=== PATIENT | female | born 1935 ===

== ENCOUNTER 2021-04-07 16:41 | Inpatient (IN) | payer MEDICARE ==
--- NOTE | 2021-04-07 16:58 | Emergency Department Report ---
ED General Adult HPI - General Stated complaint: COVID/AMS Time Seen by Provider: 04/07/21 16:41 Source: EMS Mode of arrival: Stretcher - History of Present Illness Initial comments: Patient presents to the emergency department via EMS from [facility] with a chief complaint of altered mental status. Per the staff at the facility the patient is normally able to converse with them but today she had a change in her mental status. Per EMS upon their arrival the patient's O2 sats were 88% on 5 L O2. Patient arrived to the ED on a nonrebreather. Patient does have known Covid. Patient is in moderate respiratory distress upon arrival and is not able to add to the history. -: unknown Improves with: none Worsens with: none Associated Symptoms: other (Not able to provide) Treatments Prior to Arrival: other (O2) - Related Data Allergies Allergy/AdvReac Type Severity Reaction Status Date / Time No Known Allergies Allergy Unverified 04/07/21 17:07 ED Review of Systems ROS: Stated complaint: COVID/AMS Other details as noted in HPI Comment: Unobtainable due to pts medical conditions ED Physical Exam - General General appearance: obtunded - Head Head exam: Present: atraumatic, normocephalic - Eye Eye exam: Absent: scleral icterus, conjunctival injection - ENT ENT exam: Present: mucous membranes dry - Neck Neck exam: Present: normal inspection - Respiratory Respiratory exam: Present: respiratory distress, rales - Cardiovascular Cardiovascular Exam: Present: normal rhythm, tachycardia. Absent: systolic murmur, diastolic murmur, rubs, gallop - GI/Abdominal GI/Abdominal exam: Present: soft, normal bowel sounds. Absent: distended, tenderness - Extremities Exam Extremities exam: Present: normal inspection - Back Exam Back exam: Present: normal inspection - Neurological Exam Neurological exam: Present: altered, other (Not able to completely assess due to the patient's medical condition) - Psychiatric Psychiatric exam: Present: normal affect, normal mood - Skin Skin exam: Present: warm, dry, intact, normal color. Absent: rash ED Course Vital Signs 04/07/21 04/07/21 04/07/21 16:47 16:59 17:00 Pulse Rate 103 H 121 H 116 H Respiratory 25 H 32 H 29 H Rate Blood Pressure 109/68 109/68 105/63 O2 Sat by Pulse 96 91 94 Oximetry 04/07/21 04/07/21 17:58 18:00 Pulse Rate 102 H 105 H Respiratory 27 H 23 Rate Blood Pressure O2 Sat by Pulse 93 Oximetry ED Medical Decision Making - Lab Data Result diagrams: 04/07/21 16:51 04/07/21 16:51 Lab Results 04/07/21 04/07/21 04/07/21 Range/Units 16:51 16:51 16:51 WBC 12.5 H (4.5-11.0) K/mm3 RBC 5.44 H (3.65-5.03) M/mm3 Hgb 15.8 H (10.1-14.3) gm/dl Hct 48.8 H (30.3-42.9) % MCV 90 (79-97) fl MCH 29 (28-32) pg MCHC 32 (30-34) % RDW 16.3 H (13.2-15.2) % Plt Count 267 (140-440) K/mm3 Lymph % (Auto) 13.2 L (13.4-35.0) % [place] % (Auto) 4.7 (0.0-7.3) % Eos % (Auto) 0.1 (0.0-4.3) % Baso % (Auto) 0.3 (0.0-1.8) % Lymph # (Auto) 1.6 (1.2-5.4) K/mm3 [place] # (Auto) 0.6 (0.0-0.8) K/mm3 Eos # (Auto) 0.0 (0.0-0.4) K/mm3 Baso # (Auto) 0.0 (0.0-0.1) K/mm3 Seg Neutrophils % 81.7 H (40.0-70.0) % Seg Neutrophils # 10.2 H (1.8-7.7) K/mm3 PT 18.1 H (12.2-14.9) Sec. INR 1.45 H (0.87-1.13) APTT 30.4 (24.2-36.6) Sec. Sodium 163 H* (137-145) mmol/L Potassium 5.3 H (3.6-5.0) mmol/L Chloride 129.9 H (98-107) mmol/L Carbon Dioxide 19 L (22-30) mmol/L Anion Gap 19 mmol/L BUN 58 H (7-17) mg/dL Creatinine 1.4 H (0.6-1.2) mg/dL Estimated GFR 36 ml/min BUN/Creatinine Ratio 41 % Glucose 280 H (65-100) mg/dL Lactic Acid (0.7-2.0) mmol/L Calcium 8.9 (8.4-10.2) mg/dL Total Bilirubin 0.80 (0.1-1.2) mg/dL AST 29 (5-40) units/L ALT 17 (7-56) units/L Alkaline Phosphatase 75 (35-129) units/L Troponin T 0.102 H* (0.00-0.029) ng/mL NT-Pro-B Natriuret Pep 2713 H (0-900) pg/mL Total Protein 7.0 (6.3-8.2) g/dL Albumin 3.2 L (3.9-5) g/dL Albumin/Globulin Ratio 0.8 % Triglycerides 245 H (2-149) mg/dL Cholesterol 150 (50-199) mg/dL LDL Cholesterol Direct 70 (50-130) mg/dL HDL Cholesterol 35 L (40-59) mg/dL Cholesterol/HDL Ratio 4.28 % /16/ Range/Units 16:51 WBC (4.5-11.0) K/mm3 RBC (3.65-5.03) M/mm3 Hgb (10.1-14.3) gm/dl Hct (30.3-42.9) % MCV (79-97) fl MCH (28-32) pg MCHC (30-34) % RDW (13.2-15.2) % Plt Count (140-440) K/mm3 Lymph % (Auto) (13.4-35.0) % [place] % (Auto) (0.0-7.3) % Eos % (Auto) (0.0-4.3) % Baso % (Auto) (0.0-1.8) % Lymph # (Auto) (1.2-5.4) K/mm3 [place] # (Auto) (0.0-0.8) K/mm3 Eos # (Auto) (0.0-0.4) K/mm3 Baso # (Auto) (0.0-0.1) K/mm3 Seg Neutrophils % (40.0-70.0) % Seg Neutrophils # (1.8-7.7) K/mm3 PT (12.2-14.9) Sec. INR (0.87-1.13) APTT (24.2-36.6) Sec. Sodium (137-145) mmol/L Potassium (3.6-5.0) mmol/L Chloride (98-107) mmol/L Carbon Dioxide (22-30) mmol/L Anion Gap mmol/L BUN (7-17) mg/dL Creatinine (0.6-1.2) mg/dL Estimated GFR ml/min BUN/Creatinine Ratio % Glucose (65-100) mg/dL Lactic Acid 3.00 H* (0.7-2.0) mmol/L Calcium (8.4-10.2) mg/dL Total Bilirubin (0.1-1.2) mg/dL AST (5-40) units/L ALT (7-56) units/L Alkaline Phosphatase (35-129) units/L Troponin T (0.00-0.029) ng/mL NT-Pro-B Natriuret Pep (0-900) pg/mL Total Protein (6.3-8.2) g/dL Albumin (3.9-5) g/dL Albumin/Globulin Ratio % Triglycerides (2-149) mg/dL Cholesterol (50-199) mg/dL LDL Cholesterol Direct (50-130) mg/dL HDL Cholesterol (40-59) mg/dL Cholesterol/HDL Ratio % - Radiology Data Radiology results: report reviewed - Medical Decision Making Laboratory values reviewed and the patient will be admitted for further evaluation and work-up Critical Care Time: Yes Critical care time in (mins) excluding proc time.: 45 Critical care attestation.: If time is entered above; I have spent that time in minutes in the direct care of this critically ill patient, excluding procedure time. ED Disposition Clinical Impression: Hypoxia, Hyponatremia, Lactic acidosis, Elevated troponin, Elevated brain natriuretic peptide (BNP) level, Altered mental status, Leukocytosis Disposition: ADMITTED INPATIENT Is pt being admited?: Yes Does the pt Need Aspirin: No Condition: Fair
--- NOTE | 2021-04-07 17:15 | XRay Report ---
CHEST 1 VIEW 04/07/2021 4:45 PM INDICATION / CLINICAL INFORMATION: ams. COMPARISON: None available. FINDINGS: SUPPORT DEVICES: None. HEART / MEDIASTINUM: No significant abnormality. LUNGS / PLEURA: No significant pulmonary or pleural abnormality. No pneumothorax. ADDITIONAL FINDINGS: No significant additional findings. IMPRESSION: 1. No acute findings. Signer Name: Wesley Carlson MD Signed: 04/07/2021 5:10 PM Workstation Name: [email or web address]
--- NOTE | 2021-04-07 17:19 | Cat Scan Report ---
CT head/brain wo con INDICATION: Altered mental status. TECHNIQUE: All CT scans at this location are performed using CT dose reduction for ALARA by means of automated e xposure control. COMPARISON: None available. FINDINGS: There is no acute hemorrhage, hydrocephalus, or brain edema. There is cerebral white matter hypoatten uation suggesting severe chronic small vessel ischemic change with associated central volume loss. Th ere is moderate global brain atrophy. The included paranasal sinuses and mastoid air cells are clear. The orbits appear unremarkable. IMPRESSION: 1. No acute intracranial abnormality. Signer Name: Andi Araujo MD Signed: 04/07/2021 5:15 PM Workstation Name: [id number]
[2021-04-07 17:27] LABS: Basophils % (Auto) 0.3 % (0.0-1.8); Eosinophils % (Auto) 0.1 % (0.0-4.3); Hematocrit 48.8 % (30.3-42.9); Hemoglobin 15.8 gm/dl (10.1-14.3); Lymphocytes # (Auto) 1.6 K/mm3 (1.2-5.4); Lymphocytes % (Auto) 13.2 % (13.4-35.0); Mean Corpuscular HGB Conc 32 % (30-34); Mean Corpuscular Volume 90 fl (79-97); Monocytes # (Auto) 0.6 K/mm3 (0.0-0.8); Monocytes % (Auto) 4.7 % (0.0-7.3); Platelet Count 267 K/mm3 (140-440); Red Blood Count 5.44 M/mm3 (3.65-5.03); Red Cell Distribution Width 16.3 % (13.2-15.2)
[2021-04-07] MEDS ORDERED: CEFEPIME/NS 2 GM/100 ML 2 GM/100 ML BAG IV NR (17:30)
[2021-04-07 17:36] LABS: Albumin 3.2 g/dL (3.9-5); Calcium 8.9 mg/dL (8.4-10.2)
[2021-04-07 18:02] LABS: INR 1.45 (0.87-1.13); Partial Thromboplastin Time 30.4 Sec. (24.2-36.6)
[2021-04-07 18:13] LABS: Chol/HDL Ratio 4.28 %
--- NOTE | 2021-04-07 18:17 | History and Physical Report ---
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 Patient has diminished cognition at the time my evaluation and is unable to provide history. Patient history provided by EMS staff, ED staff, as well as [facility] facility staff. As per [facility] facility staff the patient has experienced decreased responsiveness over the past 2 days. Patient was found to have a pulse oximetry of 86% on room air. EMS was notified and upon arrival the patient was found to be in respiratory distress and was subsequently placed on submental oxygen and transported to [facility] for further care and evaluation of the aforementioned symptoms. The patient was seen and evaluated in the emergency department. All lab and imaging studies reviewed. Patient was found to have a pulse oximetry of 86% on room air which is consistent with acute hypoxemic respiratory failure, a heart rate in the 120s, and respiratory rate in the 30s. A chest x-ray revealed bilateral pneumonia. The patient was found to have sepsis, acidosis, acute kidney injury, as well as severe hyponatremia. The patient was admitted to medical floor and initiated on sepsis protocol, pneumonia protocol, as well as coronavirus protocol. No further history is obtainable. The patient has diminished cognition but has a positive gag reflex and is able to protect her airway without difficulty the time my evaluation. Advanced care planning conducted in ED. Past History Past Medical History: other (See HPI) Past Surgical History: No surgical history, Other (Reviewed) Social history: single. denies: smoking, alcohol abuse, prescription drug abuse Family history: no significant family history (Reviewed) Medications and Allergies Allergies Allergy/AdvReac Type Severity Reaction Status Date / Time No Known Allergies Allergy Unverified 04/07/21 17:07 Active Meds: Active Medications Cefepime HCl (Cefepime/Ns 2 Gm/100 Ml) 2 gm in 100 mls @ 200 mls/hr IV ONCE@1730 NR; Protocol Stop: 04/07/21 19:30 Review of Systems ROS unobtainable: due to mental status Exam - Constitutional Vitals: Temp Pulse Resp BP Pulse Ox 105 H 23 105/63 93 04/07/21 18:00 04/07/21 18:00 04/07/21 17:00 04/07/21 18:00 General appearance: Present: mild distress - EENT Eyes: Present: PERRL ENT: clear oral mucosa, hearing decreased - Neck Neck: Present: supple, normal ROM - Respiratory Respiratory effort: labored, accessory muscle use Respiratory: bilateral: diminished, rhonchi - Cardiovascular Rhythm: regular Heart Sounds: Present: S1 & S2 - Extremities Extremities: pulses symmetrical, No edema Peripheral Pulses: abnormal (Capillary refill greater than 3.5 seconds) - Abdominal General gastrointestinal: Present: soft, non-tender, non-distended, normal bowel sounds Female genitourinary: Present: normal - Integumentary Integumentary: Present: clear, dry, clammy, decreased turgor - Musculoskeletal Musculoskeletal: generalized weakness - Psychiatric Psychiatric: no intact judgment & insight, no memory intact - Neurologic Neurologic: CNII-XII intact, no focal deficits, moves all extremities, no gait normal HEART Score - HEART Score Troponin: Troponin T 0.102 ng/mL (0.00-0.029) H* 04/07/21 16:51 Results - Labs CBC & Chem 7: 04/07/21 16:51 04/07/21 16:51 Labs: Abnormal lab results 04/07/21 04/07/21 04/07/21 Range/Units 16:51 16:51 16:51 WBC 12.5 H (4.5-11.0) K/mm3 RBC 5.44 H (3.65-5.03) M/mm3 Hgb 15.8 H (10.1-14.3) gm/dl Hct 48.8 H (30.3-42.9) % RDW 16.3 H (13.2-15.2) % Lymph % (Auto) 13.2 L (13.4-35.0) % Seg Neutrophils % 81.7 H (40.0-70.0) % Seg Neutrophils # 10.2 H (1.8-7.7) K/mm3 PT 18.1 H (12.2-14.9) Sec. INR 1.45 H (0.87-1.13) Sodium 163 H* (137-145) mmol/L Potassium 5.3 H (3.6-5.0) mmol/L Chloride 129.9 H (98-107) mmol/L Carbon Dioxide 19 L (22-30) mmol/L BUN 58 H (7-17) mg/dL Creatinine 1.4 H (0.6-1.2) mg/dL Glucose 280 H (65-100) mg/dL Lactic Acid (0.7-2.0) mmol/L Troponin T 0.102 H* (0.00-0.029) ng/mL NT-Pro-B Natriuret Pep 2713 H (0-900) pg/mL Albumin 3.2 L (3.9-5) g/dL Triglycerides 245 H (2-149) mg/dL HDL Cholesterol 35 L (40-59) mg/dL 04/07/21 Range/Units 16:51 WBC (4.5-11.0) K/mm3 RBC (3.65-5.03) M/mm3 Hgb (10.1-14.3) gm/dl Hct (30.3-42.9) % RDW (13.2-15.2) % Lymph % (Auto) (13.4-35.0) % Seg Neutrophils % (40.0-70.0) % Seg Neutrophils # (1.8-7.7) K/mm3 PT (12.2-14.9) Sec. INR (0.87-1.13) Sodium (137-145) mmol/L Potassium (3.6-5.0) mmol/L Chloride (98-107) mmol/L Carbon Dioxide (22-30) mmol/L BUN (7-17) mg/dL Creatinine (0.6-1.2) mg/dL Glucose (65-100) mg/dL Lactic Acid 3.00 H* (0.7-2.0) mmol/L Troponin T (0.00-0.029) ng/mL NT-Pro-B Natriuret Pep (0-900) pg/mL Albumin (3.9-5) g/dL Triglycerides (2-149) mg/dL HDL Cholesterol (40-59) mg/dL Assessment and Plan - Patient Problems (1) Sepsis Current Visit: Yes Status: Acute Plan to address problem: Sepsis protocol: Chest x-ray, CBC, BMP, urinalysis, IV antibiotic therapy, IV fluid resuscitation therapy, serial lactic acid level, blood culture, monitor urine output every shift, monitor fluid balance, maintain mean arterial pressure greater than or equal to 65 (2) Coronavirus infection Current Visit: Yes Status: Acute Plan to address problem: Coronavirus protocol: Contact precaution, isolation precautions, IV antibiotic therapy, IV steroid therapy, supplemental oxygen, pulse oximetry, vitamin D therapy, vitamin C therapy, zinc therapy, (3) Acute hypoxemic respiratory failure Current Visit: Yes Status: Acute Plan to address problem: Chest x-ray, supplemental oxygen, pulse oximetry, nebulizer therapy, will consider high flow supplemental oxygen if patient is unable to maintain pulse oximetry on supplemental oxygen via nasal cannula. (4) Metabolic acidosis Current Visit: Yes Status: Acute Plan to address problem: BMP, IV fluid resuscitation therapy, repeat BMP in a.m. (5) SHANIA (acute kidney injury) Current Visit: Yes Status: Acute Plan to address problem: IV fluid resuscitation therapy, monitor urine output every shift, repeat BMP in a.m. to monitor serum creatinine as well as GFR. (6) Hypernatremia Current Visit: Yes Status: Acute Plan to address problem: IV fluid resuscitation therapy with lactated Ringer's, BMP, repeat BMP in a.m., (7) Volume depletion Current Visit: Yes Status: Acute Plan to address problem: IV fluid resuscitation therapy, monitor urine output every shift, monitor fluid balance. (8) DVT prophylaxis Current Visit: Yes Status: Acute Plan to address problem: SCD to bilateral lower extremities while in bed, prophylactic anticoagulation (9) Advance care planning Current Visit: Yes Status: Acute Plan to address problem: Disease education conducted, care plan discussed, diagnosis discussed, prognosis discussed, patient is full code. +30 minutes.
[2021-04-07] MEDS ORDERED: ONDANSETRON 4 MG/2 ML INJ IV PRN (18:19)
[2021-04-07] MEDS ORDERED: ACETAMINOPHEN 325 MG TAB PO PRN ×2 (18:19)
[2021-04-07] MEDS ORDERED: ALBUTEROL 2.5 MG/3 ML NEBU IH PRN (18:19)
[2021-04-07] MEDS ORDERED: HYDROmorphone 1 MG/1 ML INJ IV PRN (18:19)
[2021-04-07] MEDS ORDERED: oxyCODONE /ACETAMINOPHEN 5-325MG TAB PO PRN (18:19)
[2021-04-07] MEDS ORDERED: LACTATED RINGERS 2,500 ML IV ONE (18:25)
[2021-04-07 18:50] LABS: Amphetamine Screen,Urine Negative; Benzodiazepines Screen,Urine Negative; Cannabinoid Screen,Urine Negative; Cocaine Screen,Urine Negative; Methadone Screen,Urine Negative; Opiate Screen,Urine Negative
[2021-04-07] MEDS ORDERED: cefTRIAXone/NS 2 GM/100 ML 2 GM/100 ML BAG IV SCH (19:00)
[2021-04-07 19:02] LABS: Bacteria,Urine 2+ /HPF (Negative); Bilirubin,Urine NEG (Negative); Blood,Urine NEG (Negative); Color,Urine Amber (Yellow); Hyaline Casts,Urine 42 /LPF; Mucus,Urine 3+ /HPF; Renal Epithelial Cells,Urine 6 /LPF; Urobilinogen,Urine < 2.0 mg/dL (<2.0)
[2021-04-07] MEDS ORDERED: AZITHROMYCIN/NS 500 MG/250 ML 500 MG/250 ML BAG IV SCH (20:00)
[2021-04-07] MEDS: methylPREDNISolone Sod Succinate 40 MG/1 ML INJ IV SCH (20:07)
[2021-04-07] MEDS: HEPARIN 5,000 UNIT/1 ML VIAL SUB-Q SCH (22:02)
[2021-04-07] MEDS: ASCORBIC ACID 500 MG TAB PO SCH (22:02)
[2021-04-07] MEDS: AZITHROMYCIN/NS 500 MG/250 ML 500 MG/250 ML BAG IV SCH (22:03)
[2021-04-07] MEDS: ZINC SULFATE 220 MG CAP PO SCH (22:04)
[2021-04-08] MEDS: methylPREDNISolone Sod Succinate 40 MG/1 ML INJ IV SCH ×3 (05:49→22:16)
[2021-04-08] MEDS: HYDROmorphone 1 MG/1 ML INJ IV PRN ×2 (05:51→22:43)
[2021-04-08 07:24] LABS: Basophils % (Auto) 0.1 % (0.0-1.8); Hematocrit 42.4 % (30.3-42.9); Hemoglobin 13.8 gm/dl (10.1-14.3); Lymphocytes # (Auto) 1.2 K/mm3 (1.2-5.4); Lymphocytes % (Auto) 10.7 % (13.4-35.0); Mean Corpuscular HGB Conc 33 % (30-34); Mean Corpuscular Volume 90 fl (79-97); Monocytes # (Auto) 0.3 K/mm3 (0.0-0.8); Platelet Count 216 K/mm3 (140-440); Red Blood Count 4.72 M/mm3 (3.65-5.03); Red Cell Distribution Width 15.7 % (13.2-15.2)
[2021-04-08 07:42] LABS: Calcium 8.5 mg/dL (8.4-10.2)
[2021-04-08] MEDS ORDERED: DEXTROSE 5% IN WATER 1,000 ML IV SCH (08:00)
[2021-04-08] MEDS ORDERED: DEXTROSE 50% IN WATER (25GM) 50 ML SYRINGE IV PRN (08:03)
[2021-04-08] MEDS: cefTRIAXone/NS 2 GM/100 ML 2 GM/100 ML BAG IV SCH ×2 (08:53→10:00)
[2021-04-08] MEDS: AZITHROMYCIN/NS 500 MG/250 ML 500 MG/250 ML BAG IV SCH (10:27)
--- NOTE | 2021-04-08 11:34 | Event Note ---
Date: 04/08/21 I called next of kin, Lee Ann Moreau (granddaughter) to discuss Mrs. Moreau's current medical status. The decision was made to make the patient DNR/DNI. It was stressed that we will continue to provide medical therapy with intention to treat.
[2021-04-08] MEDS: HEPARIN 5,000 UNIT/1 ML VIAL SUB-Q SCH ×2 (12:27→22:15)
[2021-04-08] MEDS: INSULIN LISPRO 100 UNIT/ML SUB-Q SCH ×3 (12:27→23:55)
--- NOTE | 2021-04-08 13:38 | Electrocardiograph Report ---
[facility] Test Date: 2021-04-08 Test Time: 08:57:28 Pat Name: AJAY AIKEN Department: Room: [facility] Gender: F Retread Builder: BEATRIZ : 1935 Requested By: ELIUD GRANDE Order Number: [id number] Reading MD: Juan Daniel Garduno Measurements Intervals [place] Rate: 84 P: 79 [place]: 129 QRS: 35 QRSD: 133 T: 92 QT: 399 QTc: 472 Interpretive Statements Sinus rhythm Probable left atrial enlargement IVCD, consider RBBB Inferior infarct, old No previous ECG available for comparison Electronically Signed On 04-08-2021 13:37:45 EDT by Juan Daniel Garduno
[2021-04-08] MEDS: INSULIN GLARGINE 100 UNITS/ML SUB-Q SCH (14:10)
--- NOTE | 2021-04-08 15:59 | Consultation ---
History of Present Illness Consult date: 04/08/21 Requesting physician: JADE CORRIGAN Consult reason: elevated troponin History of present illness: Patient is an 85 y/o female with a PMHx of vascular dementia, COVID PNA, HTN, and DM who was brought to the ED for AMS. Patient is nonverbal at time of interview and history is taken from the chart. Per documentation patient is a resident at [facility] and has had worsening cognition for the last 2 days. Patient was found to be have an O2 of 86% and was then transported by EMS to [facility]. The patient was hospitalized and diagnosed with COVID-19 last week at [facility]. ED work up found patient to have SHANIA, be septic, have PNA, and have hypernatremia. Cardiology is consulted for elevated troponins. The patient is previously unknown to our practice. Past History Past Medical History: diabetes, DVT, hypertension, other (dementia) Past Surgical History: No surgical history, Other Social history: single. denies: smoking, alcohol abuse, prescription drug abuse Family history: no significant family history (Reviewed) Medications and Allergies Allergies Allergy/AdvReac Type Severity Reaction Status Date / Time No Known Allergies Allergy Unverified 04/07/21 17:07 Active Meds: Active Medications Acetaminophen (Acetaminophen 325 Mg Tab) 650 mg PO Q4H PRN PRN Reason: Pain MILD(1-3)/Fever >100.5/MILLER Albuterol (Albuterol 2.5 Mg/3 Ml Nebu) 2.5 mg IH Q4HRT PRN PRN Reason: Shortness Of Breath Ascorbic Acid (Ascorbic Acid 500 Mg Tab) 500 mg PO BID [facility] Last Admin: 04/07/21 22:02 Dose: 500 mg Documented by: Aspirin (Aspirin 81 Mg Tab Chew) 81 mg PO QDAY [facility]OOKS Cholecalciferol (Cholecalciferol (Vit D3) 1000 Unit (25 Mcg) Tab) 1,000 unit PO QDAY BROOKS Dextrose (Dextrose 50% In Water (25gm) 50 Ml Syringe) 50 ml IV Q30MIN PRN; Protocol PRN Reason: Hypoglycemia Heparin Sodium (Porcine) (Heparin 5,000 Unit/1 Ml Vial) 5,000 unit SUB-Q Q12HR [facility] Last Admin: 04/08/21 12:27 Dose: 5,000 unit Documented by: Hydromorphone HCl (Hydromorphone 1 Mg/1 Ml Inj) 0.25 mg IV Q4H PRN PRN Reason: Pain, Moderate (4-6) Last Admin: 04/08/21 05:51 Dose: 0.25 mg Documented by: Hydromorphone HCl (Hydromorphone 1 Mg/1 Ml Inj) 0.5 mg IV Q12H PRN PRN Reason: Pain , Severe (7-10) Ceftriaxone Sodium (Rocephin/Ns 2 Gm/100 Ml) 2 gm in 100 mls @ 200 mls/hr IV Q24HR BROOKS; Protocol Stop: 04/11/21 10:29 Last Admin: 04/08/21 08:53 Dose: 200 mls/hr Documented by: Azithromycin (Zithromax/Ns) 500 mg in 250 mls @ 250 mls/hr IV Q24HR BROOKS; Protocol Stop: 04/11/21 10:59 Last Admin: 04/08/21 10:27 Dose: 250 mls/hr Documented by: Dextrose (D5w) 1,000 mls @ 60 mls/hr IV DIRECT [facility] Last Admin: 04/08/21 08:49 Dose: 60 mls/hr Documented by: Insulin Glargine (Insulin Glargine 100 Units/Ml) 10 units SUB-Q QDAY [facility] Insulin Human Lispro (Insulin Lispro 100 Unit/Ml) 0 unit SUB-Q Q6HR [facility]; Protocol Last Admin: 04/08/21 12:27 Dose: 6 unit Documented by: Methylprednisolone Sodium Succinate (Methylprednisolone Sod Succinate 40 Mg/1 Ml Inj) 40 mg IV Q8H [facility] Last Admin: 04/08/21 12:18 Dose: 40 mg Documented by: Ondansetron HCl (Ondansetron 4 Mg/2 Ml Inj) 4 mg IV Q8H PRN PRN Reason: Nausea And Vomiting Oxycodone/Acetaminophen (Oxycodone /Acetaminophen 5-325mg Tab) 1 tab PO Q12H PRN PRN Reason: Pain, Moderate (4-6) Sodium Chloride (Sodium Chloride 0.9% 10 Ml Flush Syringe) 10 ml IV BID [facility] Last Admin: 04/07/21 22:03 Dose: 10 ml Documented by: Sodium Chloride (Sodium Chloride 0.9% 10 Ml Flush Syringe) 10 ml IV PRN PRN PRN Reason: LINE FLUSH Zinc Sulfate (Zinc Sulfate 220 Mg Cap) 220 mg PO BID [facility] Last Admin: 04/07/21 22:04 Dose: 220 mg Documented by: Review of Systems ROS unobtainable: due to mental status Physical Examination Vital Signs Pulse Resp BP Pulse Ox 103 H 25 H 109/68 96 04/07/21 16:47 04/07/21 16:47 04/07/21 16:47 04/07/21 16:47 General appearance: no acute distress HEENT: Positive: PERRL, Mucus Membranes Dry Neck: Positive: trachea midline Cardiac: Positive: Reg Rate and Rhythm Lungs: Positive: Decreased Breath Sounds Neuro: Positive: Other (unable to assess) Abdomen: Positive: Active Bowel Sounds Skin: Negative: Rash, Suspicious Lesions, Ulceration Extremities: Present: upper extr. pulses, lower extr. pulses, edema (trace) Results 04/08/21 06:49 04/08/21 12:33 Cardiac Enzymes 04/07/21 Range/Units 16:51 AST 29 (5-40) units/L Coagulation 04/07/21 Range/Units 16:51 PT 18.1 H (12.2-14.9) Sec. INR 1.45 H (0.87-1.13) APTT 30.4 (24.2-36.6) Sec. Lipids 04/07/21 Range/Units 16:51 Triglycerides 245 H (2-149) mg/dL Cholesterol 150 (50-199) mg/dL HDL Cholesterol 35 L (40-59) mg/dL Cholesterol/HDL Ratio 4.28 % CBC 04/07/21 04/08/21 Range/Units 16:51 06:49 WBC 12.5 H 11.5 H (4.5-11.0) K/mm3 RBC 5.44 H 4.72 (3.65-5.03) M/mm3 Hgb 15.8 H 13.8 (10.1-14.3) gm/dl Hct 48.8 H 42.4 D (30.3-42.9) % Plt Count 267 216 (140-440) K/mm3 Lymph # (Auto) 1.6 1.2 (1.2-5.4) K/mm3 [place] # (Auto) 0.6 0.3 (0.0-0.8) K/mm3 Eos # (Auto) 0.0 0.0 (0.0-0.4) K/mm3 Baso # (Auto) 0.0 0.0 (0.0-0.1) K/mm3 Comprehensive Metabolic Panel 04/07/21 04/08/21 04/08/21 Range/Units 16:51 06:49 12:33 Sodium 163 H* 167 H* 169 H* (137-145) mmol/L Potassium 5.3 H 4.5 (3.6-5.0) mmol/L Chloride 129.9 H 131.3 H (98-107) mmol/L Carbon Dioxide 19 L 27 D (22-30) mmol/L BUN 58 H 76 H (7-17) mg/dL Creatinine 1.4 H 1.7 H (0.6-1.2) mg/dL Glucose 280 H 367 H (65-100) mg/dL Calcium 8.9 8.5 (8.4-10.2) mg/dL AST 29 (5-40) units/L ALT 17 (7-56) units/L Alkaline Phosphatase 75 (35-129) units/L Total Protein 7.0 (6.3-8.2) g/dL Albumin 3.2 L (3.9-5) g/dL - Imaging and Cardiology Echo: report reviewed EKG: report reviewed, image reviewed EKG interpretations - Telemetry EKG Rhythm: Sinus Rhythm - EKG Sinus rhythms and dysrhythmias: sinus rhythm AV and intraventricular conduction: right bundle branch block Assessment and Plan 85 y/o female with PMHx of dementia, COVID-19 PNA, HTN, 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 Troponins noted to be elevated and steady at 0.1. * Echo 03/27/2021- Normal LV dimensions. LV wall mass/thickness are grossly normal LV systolic function is normal with an estimated LVEF of >70%. No regional wall motion abnormalities. LV diastolic function is indeterminate, Normal RV dimensions. RV systolic function is normal. LA/RA not fully visualized. Aortic valve with mildly-thickened and calcified leaflets. No a ortic stenosis. No aortic regurgitation. Mitral valve appears normal. No mitral stenosis. No mitral regurgitation. Normal tricuspid valve morphology. No tricuspid regurgitation. Pulmonic valve not well seen. No pulmonic regurgitation. Hypernatremia * Management per primary SHANIA * Management per primary team Elevated troponins likely a result of supply demand mismatch from sepsis secondary to COVID PNA. Noted that troponins have down trended from patients admission to [facility] last week. Patient seen in conjunction with Dr. Minor who agrees with this plan of care. Will continue to follow - Patient Problems (1) NSTEMI (non-ST elevated myocardial infarction) Current Visit: Yes Status: Acute (2) SHANIA (acute kidney injury) Current Visit: Yes Status: Acute (3) Acute hypoxemic respiratory failure Current Visit: Yes Status: Acute (4) Coronavirus infection Current Visit: Yes Status: Acute (5) Elevated brain natriuretic peptide (BNP) level Current Visit: Yes Status: Acute (6) Hypernatremia Current Visit: Yes Status: Acute (7) Leukocytosis Current Visit: Yes Status: Acute (8) Sepsis Current Visit: Yes Status: Acute
--- NOTE | 2021-04-08 16:10 | Progress Note ---
Assessment and Plan Assessment and plan: #Acute hypoxic respiratory failure #Severe COVID-19 infection -Recently hospitalized at [facility] due to COVID-19 infection -Transferred to [facility] -Currently on nonrebreather -Discussion with next of kin, wants patient to be discharged with hospice -We will continue current care until patient accepted by hospice agency #Hypernatremia -Sodium 169 -Likely due to volume depletion, patient has not eaten or drink adequately since being in the [facility] -3 water deficit calculated 3.8 L -Every 6 hours sodium checks -Continue D5W at 60 cc an hour #Elevated troponin -Troponin 0.106 -Cardiology consulted #SHANIA -Creatinine 1.4 increased to 1.7 -Likely secondary to volume depletion, will continue to monitor #Type 2 diabetes -A1c 9.0% -Diagnosis confirmed by next of kin, takes Januvia at home -Will give 10 units Lantus nightly plus SSI -N.p.o. for now Disposition Plan: Home with hospice Total Time Spent with Patient (Minutes): 40 minutes History Interval history: Patient lying in bed with nonrebreather. Does not respond to any commands. Able to protect airway. Hospitalist Physical - Physical exam Narrative exam: GENERAL: Thin elderly woman, lying in bed.. HEENT: Nonrebreather at 10 L. CHEST/LUNGS: Coarse breath sounds bilaterally. HEART/CARDIOVASCULAR: RRR. No murmur, rubs or gallops appreciated. ABDOMEN: +BS. NT/ND. SKIN: Poor skin turgor NEURO: Unable to assess EXTREMITIES: No cyanosis, cubbing or edema. PSYCH: Unable to assess - Constitutional Vitals: Temp Pulse Resp BP Pulse Ox 98.3 F 90 22 111/52 96 04/08/21 10:55 04/08/21 10:55 04/08/21 10:55 04/08/21 10:55 04/08/21 11:07 General appearance: Present: no acute distress HEART Score - HEART Score Troponin: Troponin T 0.106 ng/mL (0.00-0.029) H* 04/08/21 09:18 Results - Labs CBC & Chem 7: 04/08/21 06:49 04/08/21 12:33 Labs: Laboratory Last Values WBC 11.5 K/mm3 (4.5-11.0) H 04/08/21 06:49 RBC 4.72 M/mm3 (3.65-5.03) 04/08/21 06:49 Hgb 13.8 gm/dl (10.1-14.3) 04/08/21 06:49 Hct 42.4 % (30.3-42.9) D 04/08/21 06:49 MCV 90 fl (79-97) 04/08/21 06:49 MCH 29 pg (28-32) 04/08/21 06:49 MCHC 33 % (30-34) 04/08/21 06:49 RDW 15.7 % (13.2-15.2) H 04/08/21 06:49 Plt Count 216 K/mm3 (140-440) 04/08/21 06:49 Lymph % (Auto) 10.7 % (13.4-35.0) L 04/08/21 06:49 [place] % (Auto) 3.0 % (0.0-7.3) 04/08/21 06:49 Eos % (Auto) 0.0 % (0.0-4.3) 04/08/21 06:49 Baso % (Auto) 0.1 % (0.0-1.8) 04/08/21 06:49 Lymph # (Auto) 1.2 K/mm3 (1.2-5.4) 04/08/21 06:49 [place] # (Auto) 0.3 K/mm3 (0.0-0.8) 04/08/21 06:49 Eos # (Auto) 0.0 K/mm3 (0.0-0.4) 04/08/21 06:49 Baso # (Auto) 0.0 K/mm3 (0.0-0.1) 04/08/21 06:49 Seg Neutrophils % 86.2 % (40.0-70.0) H 04/08/21 06:49 Seg Neutrophils # 9.9 K/mm3 (1.8-7.7) H 04/08/21 06:49 PT 18.1 Sec. (12.2-14.9) H 04/07/21 16:51 INR 1.45 (0.87-1.13) H 04/07/21 16:51 APTT 30.4 Sec. (24.2-36.6) 04/07/21 16:51 Sodium 169 mmol/L (137-145) H* 04/08/21 12:33 Potassium 4.5 mmol/L (3.6-5.0) 04/08/21 06:49 Chloride 131.3 mmol/L (98-107) H 04/08/21 06:49 Carbon Dioxide 27 mmol/L (22-30) D 04/08/21 06:49 Anion Gap 13 mmol/L 04/08/21 06:49 BUN 76 mg/dL (7-17) H 04/08/21 06:49 Creatinine 1.7 mg/dL (0.6-1.2) H 04/08/21 06:49 Estimated GFR 29 ml/min 04/08/21 06:49 BUN/Creatinine Ratio 45 % 04/08/21 06:49 Glucose 367 mg/dL (65-100) H 04/08/21 06:49 POC Glucose 337 mg/dL (70-105) H 04/08/21 12:18 Hemoglobin A1c 9.0 % (4-6) H 04/08/21 09:18 Lactic Acid 1.70 mmol/L (0.7-2.0) 04/08/21 09:18 Calcium 8.5 mg/dL (8.4-10.2) 04/08/21 06:49 Total Bilirubin 0.80 mg/dL (0.1-1.2) 04/07/21 16:51 AST 29 units/L (5-40) 04/07/21 16:51 ALT 17 units/L (7-56) 04/07/21 16:51 Alkaline Phosphatase 75 units/L (35-129) 04/07/21 16:51 Troponin T 0.106 ng/mL (0.00-0.029) H* 04/08/21 09:18 NT-Pro-B Natriuret Pep 2713 pg/mL (0-900) H 04/07/21 16:51 Total Protein 7.0 g/dL (6.3-8.2) 04/07/21 16:51 Albumin 3.2 g/dL (3.9-5) L 04/07/21 16:51 Albumin/Globulin Ratio 0.8 % 04/07/21 16:51 Triglycerides 245 mg/dL (2-149) H 04/07/21 16:51 Cholesterol 150 mg/dL (50-199) 04/07/21 16:51 LDL Cholesterol Direct 70 mg/dL (50-130) 04/07/21 16:51 HDL Cholesterol 35 mg/dL (40-59) L 04/07/21 16:51 Cholesterol/HDL Ratio 4.28 % 04/07/21 16:51 Urine Color Leyla (Yellow) 04/07/21 18:20 Urine Turbidity Cloudy (Clear) 04/07/21 18:20 Urine pH 5.0 (5.0-7.0) 04/07/21 18:20 Ur Specific [place] 1.026 (1.003-1.030) 04/07/21 18:20 Urine Protein 100 mg/dl mg/dL (Negative) 04/07/21 18:20 Urine Glucose (UA) 50 mg/dL (Negative) 04/07/21 18:20 Urine Ketones Tr mg/dL (Negative) 04/07/21 18:20 Urine Blood Neg (Negative) 04/07/21 18:20 Urine Nitrite Neg (Negative) 04/07/21 18:20 Urine Bilirubin Neg (Negative) 04/07/21 18:20 Urine Urobilinogen < 2.0 mg/dL (<2.0) 04/07/21 18:20 Ur Leukocyte Esterase Tr (Negative) 04/07/21 18:20 Urine WBC (Auto) 12.0 /HPF (0.0-6.0) H 04/07/21 18:20 Urine RBC (Auto) 5.0 /HPF (0.0-6.0) 04/07/21 18:20 U Epithel Cells (Auto) 17.0 /HPF (0-13.0) H 04/07/21 18:20 Urine Bacteria (Auto) 2+ /HPF (Negative) 04/07/21 18:20 Ur Renal Epithelial Cell 6 /LPF 04/07/21 18:20 Hyaline Casts 42 /LPF 04/07/21 18:20 Urine Mucus 3+ /HPF 04/07/21 18:20 Urine Opiates Screen Negative 04/07/21 18:20 Urine Methadone Screen Negative 04/07/21 18:20 Ur Barbiturates Screen Negative 04/07/21 18:20 Ur Phencyclidine Scrn Negative 04/07/21 18:20 Ur Amphetamines Screen Negative 04/07/21 18:20 U Benzodiazepines Scrn Negative 04/07/21 18:20 Urine Cocaine Screen Negative 04/07/21 18:20 U Marijuana (THC) Screen Negative 04/07/21 18:20 Drugs of Abuse Note Disclamer 04/07/21 18:20 Blood Type A POSITIVE 04/07/21 18:31 Antibody Screen Negative 04/07/21 18:31 Microbiology: Microbiology 04/07/21 18:20 Urine,Clean Catch Urine Culture - Preliminary NO GROWTH AFTER 24 HOURS 04/07/21 16:51 Peripheral/Venous Blood Culture - Preliminary Culture in Progress 04/07/21 16:59 Peripheral/Venous Blood Culture - Preliminary Culture in Progress Hubbard/IV: Voiding Method Incontinent Active Medications - Current Medications Current Medications: Generic Name Dose Route Start Last Admin Trade Name Freq PRN Reason Stop Dose Admin Acetaminophen 650 mg 04/07/21 18:19 Acetaminophen 325 Mg Tab PO Q4H PRN Pain MILD(1-3)/Fever >100.5/MILLER Albuterol 2.5 mg 04/07/21 18:19 Albuterol 2.5 Mg/3 Ml Nebu IH Q4HRT PRN Shortness Of Breath Ascorbic Acid 500 mg 04/07/21 22:00 04/07/21 22:02 Ascorbic Acid 500 Mg Tab PO 500 mg BID BROOKS Administration Aspirin 81 mg 04/09/21 10:00 Aspirin 81 Mg Tab Chew PO QDAY BROOKS Cholecalciferol 1,000 unit 04/08/21 10:00 Cholecalciferol (Vit D3) 1000 Unit (25 Mcg) Tab PO QDAY BROOKS Dextrose 50 ml 04/08/21 08:03 Dextrose 50% In Water (25gm) 50 Ml Syringe IV Q30MIN PRN Hypoglycemia Protocol Heparin Sodium (Porcine) 5,000 unit 04/07/21 22:00 04/08/21 12:27 Heparin 5,000 Unit/1 Ml Vial SUB-Q 5,000 unit Q12HR BROOKS Administration Hydromorphone HCl 0.25 mg 04/07/21 18:19 04/08/21 05:51 Hydromorphone 1 Mg/1 Ml Inj IV 0.25 mg Q4H PRN Administration Pain, Moderate (4-6) Hydromorphone HCl 0.5 mg 04/07/21 18:19 Hydromorphone 1 Mg/1 Ml Inj IV Q12H PRN Pain , Severe (7-10) Ceftriaxone Sodium 2 gm in 100 mls @ 200 mls/hr 04/08/21 10:00 04/08/21 08:53 Rocephin/Ns 2 Gm/100 Ml IV 04/11/21 10:29 200 mls/hr Q24HR BROOKS Administration Protocol Azithromycin 500 mg in 250 mls @ 250 mls/hr 04/07/21 21:30 04/08/21 10:27 Zithromax/Ns IV 04/11/21 10:59 250 mls/hr Q24HR BROOKS Administration Protocol Dextrose 1,000 mls @ 60 mls/hr 04/08/21 08:00 04/08/21 08:49 D5w IV 60 mls/hr DIRECT BROOKS Administration Insulin Glargine 10 units 04/08/21 14:00 Insulin Glargine 100 Units/Ml SUB-Q QDAY BROOKS Insulin Human Lispro 0 unit 04/08/21 12:00 04/08/21 12:27 Insulin Lispro 100 Unit/Ml SUB-Q 6 unit Q6HR BROOKS Administration Protocol Methylprednisolone Sodium Succinate 40 mg 04/07/21 20:00 04/08/21 12:18 Methylprednisolone Sod Succinate 40 Mg/1 Ml Inj IV 40 mg Q8H BROOKS Administration Ondansetron HCl 4 mg 04/07/21 18:19 Ondansetron 4 Mg/2 Ml Inj IV Q8H PRN Nausea And Vomiting Oxycodone/Acetaminophen 1 tab 04/07/21 18:19 Oxycodone /Acetaminophen 5-325mg Tab PO Q12H PRN Pain, Moderate (4-6) Sodium Chloride 10 ml 04/07/21 22:00 04/07/21 22:03 Sodium Chloride 0.9% 10 Ml Flush Syringe IV 10 ml BID BROOKS Administration Sodium Chloride 10 ml 04/07/21 18:19 Sodium Chloride 0.9% 10 Ml Flush Syringe IV PRN PRN LINE FLUSH Zinc Sulfate 220 mg 04/07/21 22:00 04/07/21 22:04 Zinc Sulfate 220 Mg Cap PO 220 mg BID BROOKS Administration
--- NOTE | 2021-04-08 16:32 | Consultation ---
History of Present Illness - Reason for Consult Consult date: 04/08/21 COVID - History of Present Illness 85-year-old female with history of dementia, COVID-19 infection, admitted on 04/07/2021 due to status from the [facility]. Patient was found with an O2 sat of 86%. On arrival, temperature 99.7, HR 121, BP 109/68, O2 sat down to 86%. Blood culture 04/07/2021 no growth today. Urine culture no growth. Chest x-ray no consolidations. Initial WBC 12.5. Hemoglobin 13.8. Platelets 267. Sodium 163. Creatinine 1.4. Lactate 3. Urine with 12 WBCs trace leukocyte esterase. Review of Systems: reviewed ED and H&P notes. Review of system deferred to minimize COVID-19 transmission. Past History Past Medical History: diabetes, DVT, hypertension, other (dementia) Past Surgical History: No surgical history, Other Social history: single. denies: smoking, alcohol abuse, prescription drug abuse Family history: no significant family history (Reviewed) Medications and Allergies Allergies Allergy/AdvReac Type Severity Reaction Status Date / Time No Known Allergies Allergy Unverified 04/07/21 17:07 Active Meds: Active Medications Acetaminophen (Acetaminophen 325 Mg Tab) 650 mg PO Q4H PRN PRN Reason: Pain MILD(1-3)/Fever >100.5/MILLER Albuterol (Albuterol 2.5 Mg/3 Ml Nebu) 2.5 mg IH Q4HRT PRN PRN Reason: Shortness Of Breath Ascorbic Acid (Ascorbic Acid 500 Mg Tab) 500 mg PO BID [facility] Last Admin: 04/07/21 22:02 Dose: 500 mg Documented by: Aspirin (Aspirin 81 Mg Tab Chew) 81 mg PO QDAY [facility] Cholecalciferol (Cholecalciferol (Vit D3) 1000 Unit (25 Mcg) Tab) 1,000 unit PO QDAY [facility] Dextrose (Dextrose 50% In Water (25gm) 50 Ml Syringe) 50 ml IV Q30MIN PRN; Protocol PRN Reason: Hypoglycemia Heparin Sodium (Porcine) (Heparin 5,000 Unit/1 Ml Vial) 5,000 unit SUB-Q Q12HR [facility] Last Admin: 04/08/21 12:27 Dose: 5,000 unit Documented by: Hydromorphone HCl (Hydromorphone 1 Mg/1 Ml Inj) 0.25 mg IV Q4H PRN PRN Reason: Pain, Moderate (4-6) Last Admin: 04/08/21 05:51 Dose: 0.25 mg Documented by: Hydromorphone HCl (Hydromorphone 1 Mg/1 Ml Inj) 0.5 mg IV Q12H PRN PRN Reason: Pain , Severe (7-10) Ceftriaxone Sodium (Rocephin/Ns 2 Gm/100 Ml) 2 gm in 100 mls @ 200 mls/hr IV Q24HR [facility]; Protocol Stop: 04/11/21 10:29 Last Admin: 04/08/21 08:53 Dose: 200 mls/hr Documented by: Azithromycin (Zithromax/Ns) 500 mg in 250 mls @ 250 mls/hr IV Q24HR BROOKS; Protocol Stop: 04/11/21 10:59 Last Admin: 04/08/21 10:27 Dose: 250 mls/hr Documented by: Dextrose (D5w) 1,000 mls @ 60 mls/hr IV DIRECT BROOKS Last Admin: 04/08/21 08:49 Dose: 60 mls/hr Documented by: Insulin Glargine (Insulin Glargine 100 Units/Ml) 10 units SUB-Q QDAY [facility] Insulin Human Lispro (Insulin Lispro 100 Unit/Ml) 0 unit SUB-Q Q6HR [facility]; Protocol Last Admin: 04/08/21 12:27 Dose: 6 unit Documented by: Methylprednisolone Sodium Succinate (Methylprednisolone Sod Succinate 40 Mg/1 Ml Inj) 40 mg IV Q8H [facility] Last Admin: 04/08/21 12:18 Dose: 40 mg Documented by: Ondansetron HCl (Ondansetron 4 Mg/2 Ml Inj) 4 mg IV Q8H PRN PRN Reason: Nausea And Vomiting Oxycodone/Acetaminophen (Oxycodone /Acetaminophen 5-325mg Tab) 1 tab PO Q12H PRN PRN Reason: Pain, Moderate (4-6) Sodium Chloride (Sodium Chloride 0.9% 10 Ml Flush Syringe) 10 ml IV BID [facility] Last Admin: 04/07/21 22:03 Dose: 10 ml Documented by: Sodium Chloride (Sodium Chloride 0.9% 10 Ml Flush Syringe) 10 ml IV PRN PRN PRN Reason: LINE FLUSH Zinc Sulfate (Zinc Sulfate 220 Mg Cap) 220 mg PO BID [facility] Last Admin: 04/07/21 22:04 Dose: 220 mg Documented by: Physical Examination - Physical Exam Narrative exam: Physical exam deferred to minimize COVID-19 transmission during pandemic. ER and internal medicine physical examination notes reviewed. - Constitutional Vitals: Vital Signs Temp Pulse Resp BP Pulse Ox 98.3 F 90 22 111/52 96 04/08/21 10:55 04/08/21 10:55 04/08/21 10:55 04/08/21 10:55 04/08/21 11:07 Temperature -Last 24 Hours Temperature 98.3 F Temperature 97.3 F Temperature 99.7 F Results - Labs CBC & Chem 7: 04/08/21 06:49 04/08/21 12:33 Labs: Abnormal lab results 04/07/21 04/07/21 04/07/21 Range/Units 16:51 16:51 16:51 WBC 12.5 H (4.5-11.0) K/mm3 RBC 5.44 H (3.65-5.03) M/mm3 Hgb 15.8 H (10.1-14.3) gm/dl Hct 48.8 H (30.3-42.9) % RDW 16.3 H (13.2-15.2) % Lymph % (Auto) 13.2 L (13.4-35.0) % Seg Neutrophils % 81.7 H (40.0-70.0) % Seg Neutrophils # 10.2 H (1.8-7.7) K/mm3 PT 18.1 H (12.2-14.9) Sec. INR 1.45 H (0.87-1.13) Sodium 163 H* (137-145) mmol/L Potassium 5.3 H (3.6-5.0) mmol/L Chloride 129.9 H (98-107) mmol/L Carbon Dioxide 19 L (22-30) mmol/L BUN 58 H (7-17) mg/dL Creatinine 1.4 H (0.6-1.2) mg/dL Glucose 280 H (65-100) mg/dL POC Glucose (70-105) mg/dL Hemoglobin A1c (4-6) % Lactic Acid (0.7-2.0) mmol/L Troponin T 0.102 H* (0.00-0.029) ng/mL NT-Pro-B Natriuret Pep 2713 H (0-900) pg/mL Albumin 3.2 L (3.9-5) g/dL Triglycerides 245 H (2-149) mg/dL HDL Cholesterol 35 L (40-59) mg/dL Urine WBC (Auto) (0.0-6.0) /HPF U Epithel Cells (Auto) (0-13.0) /HPF 04/07/21 04/07/21 04/07/21 Range/Units 16:51 18:20 18:31 WBC (4.5-11.0) K/mm3 RBC (3.65-5.03) M/mm3 Hgb (10.1-14.3) gm/dl Hct (30.3-42.9) % RDW (13.2-15.2) % Lymph % (Auto) (13.4-35.0) % Seg Neutrophils % (40.0-70.0) % Seg Neutrophils # (1.8-7.7) K/mm3 PT (12.2-14.9) Sec. INR (0.87-1.13) Sodium (137-145) mmol/L Potassium (3.6-5.0) mmol/L Chloride (98-107) mmol/L Carbon Dioxide (22-30) mmol/L BUN (7-17) mg/dL Creatinine (0.6-1.2) mg/dL Glucose (65-100) mg/dL POC Glucose (70-105) mg/dL Hemoglobin A1c (4-6) % Lactic Acid 3.00 H* 3.20 H* (0.7-2.0) mmol/L Troponin T (0.00-0.029) ng/mL NT-Pro-B Natriuret Pep (0-900) pg/mL Albumin (3.9-5) g/dL Triglycerides (2-149) mg/dL HDL Cholesterol (40-59) mg/dL Urine WBC (Auto) 12.0 H (0.0-6.0) /HPF U Epithel Cells (Auto) 17.0 H (0-13.0) /HPF 04/08/21 04/08/21 04/08/21 Range/Units 06:49 06:49 09:18 WBC 11.5 H (4.5-11.0) K/mm3 RBC (3.65-5.03) M/mm3 Hgb (10.1-14.3) gm/dl Hct (30.3-42.9) % RDW 15.7 H (13.2-15.2) % Lymph % (Auto) 10.7 L (13.4-35.0) % Seg Neutrophils % 86.2 H (40.0-70.0) % Seg Neutrophils # 9.9 H (1.8-7.7) K/mm3 PT (12.2-14.9) Sec. INR (0.87-1.13) Sodium 167 H* (137-145) mmol/L Potassium (3.6-5.0) mmol/L Chloride 131.3 H (98-107) mmol/L Carbon Dioxide (22-30) mmol/L BUN 76 H (7-17) mg/dL Creatinine 1.7 H (0.6-1.2) mg/dL Glucose 367 H (65-100) mg/dL POC Glucose (70-105) mg/dL Hemoglobin A1c 9.0 H (4-6) % Lactic Acid (0.7-2.0) mmol/L Troponin T (0.00-0.029) ng/mL NT-Pro-B Natriuret Pep (0-900) pg/mL Albumin (3.9-5) g/dL Triglycerides (2-149) mg/dL HDL Cholesterol (40-59) mg/dL Urine WBC (Auto) (0.0-6.0) /HPF U Epithel Cells (Auto) (0-13.0) /HPF 04/08/21 04/08/21 04/08/21 Range/Units 09:18 12:18 12:33 WBC (4.5-11.0) K/mm3 RBC (3.65-5.03) M/mm3 Hgb (10.1-14.3) gm/dl Hct (30.3-42.9) % RDW (13.2-15.2) % Lymph % (Auto) (13.4-35.0) % Seg Neutrophils % (40.0-70.0) % Seg Neutrophils # (1.8-7.7) K/mm3 PT (12.2-14.9) Sec. INR (0.87-1.13) Sodium 169 H* (137-145) mmol/L Potassium (3.6-5.0) mmol/L Chloride (98-107) mmol/L Carbon Dioxide (22-30) mmol/L BUN (7-17) mg/dL Creatinine (0.6-1.2) mg/dL Glucose (65-100) mg/dL POC Glucose 337 H (70-105) mg/dL Hemoglobin A1c (4-6) % Lactic Acid (0.7-2.0) mmol/L Troponin T 0.106 H* (0.00-0.029) ng/mL NT-Pro-B Natriuret Pep (0-900) pg/mL Albumin (3.9-5) g/dL Triglycerides (2-149) mg/dL HDL Cholesterol (40-59) mg/dL Urine WBC (Auto) (0.0-6.0) /HPF U Epithel Cells (Auto) (0-13.0) /HPF Assessment and Plan Cultures: Blood culture no growth today SARS CoV2 PCR Assessment: 85-year-old female with history of dementia, COVID-19 infection, admitted on 04/07/2021 due to status from a [facility], recently diagnosed to [facility]. For COVID-19: #Severe sepsis: Present on admission with altered mental status, low-grade fever, hypotension, leukocytosis, lactate, likely secondary to COVID-19/UTI. #Presumed Severe COVID pneumonia: CXR no consolidations. Infllammatory markers pending. #Acute hypoxemic respiratory failure: Dropped to 86%. Currently on 3L #SHANIA: from COVID #Hypernatremia. #Acute encephalopathy: Related to hypoxia/hypernatremia/uremia Recommendations: -Steroids IV/PO daily for 10 days -No indication for remdesivir (CrCl<30 mg/mL). Unclear if she received remdesivir [facility]. -Monitor inflammatory markers - ferritin, Ddimer, CRP, LDH -Continue anticoagulation per System Protocol -Prone positioning as possible -Continue ceftriaxone and azithromycin, procalcitonin <0.25 ng/mL -Family considering hospice Will sign off please call us if any question Elvira Manzano MD Infectious Diseases [employer] [facility] ([facility] M [phone] O [phone]
[2021-04-08] MEDS: CHOLECALCIFEROL (VIT D3) 1000 UNIT (25 mcg) TAB PO SCH (17:33)
[2021-04-08] MEDS: ZINC SULFATE 220 MG CAP PO SCH ×2 (17:33→22:15)
[2021-04-08] MEDS: ASCORBIC ACID 500 MG TAB PO SCH ×2 (17:33→22:15)
[2021-04-08] MEDS: SODIUM CHLORIDE 0.45% 1000 ML 1,000 ML IV SCH (22:43)
[2021-04-09] MEDS: ZINC SULFATE 220 MG CAP PO SCH ×2 (02:16→11:10)
[2021-04-09] MEDS: ASCORBIC ACID 500 MG TAB PO SCH ×2 (02:16→11:10)
[2021-04-09] MEDS: methylPREDNISolone Sod Succinate 40 MG/1 ML INJ IV SCH ×2 (05:35→12:21)
[2021-04-09] MEDS: INSULIN LISPRO 100 UNIT/ML SUB-Q SCH ×3 (06:36→18:03)
[2021-04-09 09:55] LABS: Hematocrit 41.5 % (30.3-42.9); Hemoglobin 13.7 gm/dl (10.1-14.3); Mean Corpuscular HGB Conc 33 % (30-34); Mean Corpuscular Volume 89 fl (79-97); Platelet Count 181 K/mm3 (140-440); Red Blood Count 4.66 M/mm3 (3.65-5.03); Red Cell Distribution Width 14.9 % (13.2-15.2)
[2021-04-09 10:00] LABS: Albumin 3.2 g/dL (3.9-5); Calcium 9.1 mg/dL (8.4-10.2)
[2021-04-09] MEDS: INSULIN GLARGINE 100 UNITS/ML SUB-Q SCH (11:09)
[2021-04-09] MEDS: ASPIRIN 81 MG TAB CHEW PO SCH (11:09)
[2021-04-09] MEDS: CHOLECALCIFEROL (VIT D3) 1000 UNIT (25 mcg) TAB PO SCH (11:10)
[2021-04-09] MEDS: cefTRIAXone/NS 2 GM/100 ML 2 GM/100 ML BAG IV SCH (11:17)
[2021-04-09] MEDS: HEPARIN 5,000 UNIT/1 ML VIAL SUB-Q SCH (11:18)
[2021-04-09] MEDS: AZITHROMYCIN/NS 500 MG/250 ML 500 MG/250 ML BAG IV SCH (11:18)
--- NOTE | 2021-04-09 11:55 | Progress Note ---
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 fib with RVR * Start low-dose amiodarone gtt * Start Lovenox Acute Hypoxic Respiratory failure COVID-19 PNA Sepsis * Patient found to be COVID positive and hospitalized last week * ID consulted NSTEMI type 2 * Elevated troponins likely a result of supply demand mismatch from sepsis secondary to COVID PNA. Noted that troponins have down trended from patients admission to [facility] last week * EKG shows normal sinus rhythm 84 with RBBB, no acute ischemic changes. Troponins noted to be elevated and steady at 0.1. * Echo 03/27/2021- Normal LV dimensions. LV wall mass/thickness are grossly normal LV systolic function is normal with an estimated LVEF of >70%. Hypernatremia * Management per primary * Agree with volume repletion * Consider nephrology consultation SHANIA * Management per primary team Plan discussed with nurse. We will continue to follow. Subjective Date of service: 04/09/21 Objective Vital Signs Temp Pulse Resp BP BP Pulse Ox 04/09/21 09:36 99 04/09/21 05:58 99 04/09/21 04:59 98.0 F 16 131/57 04/08/21 22:37 95 04/08/21 21:56 97.7 F 16 119/62 04/08/21 17:23 97 F L 71 20 114/47 93 - Physical Examination HEENT: Positive: PERRL, Mucus Membranes Dry Neck: Positive: trachea midline Neuro: Positive: Other (unable to assess) Abdomen: Positive: Active Bowel Sounds Skin: Negative: Rash, Suspicious Lesions, Ulceration Extremities: Present: upper extr. pulses, lower extr. pulses, edema (trace) - Labs and Meds Cardiac Enzymes 04/09/21 Range/Units 09:09 AST 77 H (5-40) units/L CBC 04/09/21 Range/Units 09:09 WBC 15.0 H (4.5-11.0) K/mm3 RBC 4.66 (3.65-5.03) M/mm3 Hgb 13.7 (10.1-14.3) gm/dl Hct 41.5 (30.3-42.9) % Plt Count 181 (140-440) K/mm3 Comprehensive Metabolic Panel 04/08/21 04/08/21 04/09/21 Range/Units 12:33 18:51 00:48 Sodium 169 H* 163 H* 167 H* (137-145) mmol/L Potassium (3.6-5.0) mmol/L Chloride (98-107) mmol/L Carbon Dioxide (22-30) mmol/L BUN (7-17) mg/dL Creatinine (0.6-1.2) mg/dL Glucose (65-100) mg/dL Calcium (8.4-10.2) mg/dL AST (5-40) units/L ALT (7-56) units/L Alkaline Phosphatase (35-129) units/L Total Protein (6.3-8.2) g/dL Albumin (3.9-5) g/dL 04/09/21 04/09/21 Range/Units 05:48 09:09 Sodium 165 H* 167 H* (137-145) mmol/L Potassium 3.9 (3.6-5.0) mmol/L Chloride 134.0 H (98-107) mmol/L Carbon Dioxide 24 (22-30) mmol/L BUN 76 H (7-17) mg/dL Creatinine 1.3 H (0.6-1.2) mg/dL Glucose 251 H (65-100) mg/dL Calcium 9.1 (8.4-10.2) mg/dL AST 77 H (5-40) units/L ALT 62 H (7-56) units/L Alkaline Phosphatase 83 (35-129) units/L Total Protein 6.4 (6.3-8.2) g/dL Albumin 3.2 L (3.9-5) g/dL - Imaging and Cardiology EKG: report reviewed, image reviewed Echo: report reviewed - EKG Sinus rhythms and dysrhythmias: sinus rhythm AV and intraventricular conduction: right bundle branch block
[2021-04-09] MEDS: ENOXAPARIN 30 MG/0.3 ML INJ SUB-Q SCH (12:18)
--- NOTE | 2021-04-09 13:46 | Progress Note ---
Assessment and Plan Assessment and plan: #Acute hypoxic respiratory failure #Severe COVID-19 infection -Recently hospitalized at [facility] due to COVID-19 infection -Transferred to [facility] from assisted -Currently on nonrebreather -Discussion with next of kin, wants patient to be discharged with hospice -We will continue current care until patient accepted by hospice agency #Hypernatremia -Sodium 165 today -Likely due to volume depletion, patient has not eaten or drink adequately since being in the assisted -3 water deficit calculated 3.8 L -Every 6 hours sodium checks -Continue 1/2 NS at 60 cc an hour #Elevated troponin -Troponin 0.106 -Cardiology consulted #Atrial fibrillation -Cardiology managing -plan to bolus amiodarone #SHANIA -Creatinine 1.3 -Likely secondary to volume depletion, will continue to monitor #Type 2 diabetes -A1c 9.0% -Diagnosis confirmed by next of kin, takes Januvia at home -10 units Lantus qday plus SSI -N.p.o. for now Disposition Plan: Home with hospice Total Time Spent with Patient (Minutes): 30 minutes History Interval history: Does not respond to any commands. Able to protect airway, appears to be comfortable. Hospitalist Physical - Physical exam Narrative exam: GENERAL: Thin elderly woman, lying in bed.. HEENT: Nonrebreather at 10 L. CHEST/LUNGS: Coarse breath sounds bilaterally. HEART/CARDIOVASCULAR: RRR. No murmur, rubs or gallops appreciated. ABDOMEN: +BS. NT/ND. SKIN: Poor skin turgor NEURO: Unable to assess EXTREMITIES: No cyanosis, cubbing or edema. PSYCH: Unable to assess - Constitutional Vitals: Temp Pulse Resp BP Pulse Ox 98.0 F 71 16 131/57 99 04/09/21 04:59 04/08/21 17:23 04/09/21 04:59 04/09/21 04:59 04/09/21 09:36 General appearance: Present: no acute distress HEART Score - HEART Score Troponin: Troponin T 0.106 ng/mL (0.00-0.029) H* 04/08/21 09:18 Results - Labs CBC & Chem 7: 04/09/21 09:09 04/09/21 09:09 Labs: Laboratory Last Values WBC 15.0 K/mm3 (4.5-11.0) H 04/09/21 09:09 RBC 4.66 M/mm3 (3.65-5.03) 04/09/21 09:09 Hgb 13.7 gm/dl (10.1-14.3) 04/09/21 09:09 Hct 41.5 % (30.3-42.9) 04/09/21 09:09 MCV 89 fl (79-97) 04/09/21 09:09 MCH 30 pg (28-32) 04/09/21 09:09 MCHC 33 % (30-34) 04/09/21 09:09 RDW 14.9 % (13.2-15.2) 04/09/21 09:09 Plt Count 181 K/mm3 (140-440) 04/09/21 09:09 Lymph % (Auto) 10.7 % (13.4-35.0) L 04/08/21 06:49 [place] % (Auto) 3.0 % (0.0-7.3) 04/08/21 06:49 Eos % (Auto) 0.0 % (0.0-4.3) 04/08/21 06:49 Baso % (Auto) 0.1 % (0.0-1.8) 04/08/21 06:49 Lymph # (Auto) 1.2 K/mm3 (1.2-5.4) 04/08/21 06:49 [place] # (Auto) 0.3 K/mm3 (0.0-0.8) 04/08/21 06:49 Eos # (Auto) 0.0 K/mm3 (0.0-0.4) 04/08/21 06:49 Baso # (Auto) 0.0 K/mm3 (0.0-0.1) 04/08/21 06:49 Seg Neutrophils % 86.2 % (40.0-70.0) H 04/08/21 06:49 Seg Neutrophils # 9.9 K/mm3 (1.8-7.7) H 04/08/21 06:49 PT 18.1 Sec. (12.2-14.9) H 04/07/21 16:51 INR 1.45 (0.87-1.13) H 04/07/21 16:51 APTT 30.4 Sec. (24.2-36.6) 04/07/21 16:51 Sodium 167 mmol/L (137-145) H* 04/09/21 09:09 Potassium 3.9 mmol/L (3.6-5.0) 04/09/21 09:09 Chloride 134.0 mmol/L (98-107) H 04/09/21 09:09 Carbon Dioxide 24 mmol/L (22-30) 04/09/21 09:09 Anion Gap 13 mmol/L 04/09/21 09:09 BUN 76 mg/dL (7-17) H 04/09/21 09:09 Creatinine 1.3 mg/dL (0.6-1.2) H 04/09/21 09:09 Estimated GFR 39 ml/min 04/09/21 09:09 BUN/Creatinine Ratio 58 % 04/09/21 09:09 Glucose 251 mg/dL (65-100) H 04/09/21 09:09 POC Glucose 241 mg/dL (70-105) H 04/09/21 11:57 Hemoglobin A1c 9.0 % (4-6) H 04/08/21 09:18 Lactic Acid 1.70 mmol/L (0.7-2.0) 04/08/21 09:18 Calcium 9.1 mg/dL (8.4-10.2) 04/09/21 09:09 Total Bilirubin 0.50 mg/dL (0.1-1.2) 04/09/21 09:09 AST 77 units/L (5-40) H 04/09/21 09:09 ALT 62 units/L (7-56) H 04/09/21 09:09 Alkaline Phosphatase 83 units/L (35-129) 04/09/21 09:09 Troponin T 0.106 ng/mL (0.00-0.029) H* 04/08/21 09:18 NT-Pro-B Natriuret Pep 2713 pg/mL (0-900) H 04/07/21 16:51 Total Protein 6.4 g/dL (6.3-8.2) 04/09/21 09:09 Albumin 3.2 g/dL (3.9-5) L 04/09/21 09:09 Albumin/Globulin Ratio 1.0 % 04/09/21 09:09 Triglycerides 245 mg/dL (2-149) H 04/07/21 16:51 Cholesterol 150 mg/dL (50-199) 04/07/21 16:51 LDL Cholesterol Direct 70 mg/dL (50-130) 04/07/21 16:51 HDL Cholesterol 35 mg/dL (40-59) L 04/07/21 16:51 Cholesterol/HDL Ratio 4.28 % 04/07/21 16:51 Urine Color Leyla (Yellow) 04/07/21 18:20 Urine Turbidity Cloudy (Clear) 04/07/21 18:20 Urine pH 5.0 (5.0-7.0) 04/07/21 18:20 Ur Specific [place] 1.026 (1.003-1.030) 04/07/21 18:20 Urine Protein 100 mg/dl mg/dL (Negative) 04/07/21 18:20 Urine Glucose (UA) 50 mg/dL (Negative) 04/07/21 18:20 Urine Ketones Tr mg/dL (Negative) 04/07/21 18:20 Urine Blood Neg (Negative) 04/07/21 18:20 Urine Nitrite Neg (Negative) 04/07/21 18:20 Urine Bilirubin Neg (Negative) 04/07/21 18:20 Urine Urobilinogen < 2.0 mg/dL (<2.0) 04/07/21 18:20 Ur Leukocyte Esterase Tr (Negative) 04/07/21 18:20 Urine WBC (Auto) 12.0 /HPF (0.0-6.0) H 04/07/21 18:20 Urine RBC (Auto) 5.0 /HPF (0.0-6.0) 04/07/21 18:20 U Epithel Cells (Auto) 17.0 /HPF (0-13.0) H 04/07/21 18:20 Urine Bacteria (Auto) 2+ /HPF (Negative) 04/07/21 18:20 Ur Renal Epithelial Cell 6 /LPF 04/07/21 18:20 Hyaline Casts 42 /LPF 04/07/21 18:20 Urine Mucus 3+ /HPF 04/07/21 18:20 Urine Opiates Screen Negative 04/07/21 18:20 Urine Methadone Screen Negative 04/07/21 18:20 Ur Barbiturates Screen Negative 04/07/21 18:20 Ur Phencyclidine Scrn Negative 04/07/21 18:20 Ur Amphetamines Screen Negative 04/07/21 18:20 U Benzodiazepines Scrn Negative 04/07/21 18:20 Urine Cocaine Screen Negative 04/07/21 18:20 U Marijuana (THC) Screen Negative 04/07/21 18:20 Drugs of Abuse Note Disclamer 04/07/21 18:20 Blood Type A POSITIVE 04/07/21 18:31 Antibody Screen Negative 04/07/21 18:31 Microbiology: Microbiology 04/07/21 18:20 Urine,Clean Catch Urine Culture - Final NO GROWTH AFTER 48 HOURS 04/07/21 16:51 Peripheral/Venous Blood Culture - Preliminary NO GROWTH AFTER 24 HOURS 04/07/21 16:59 Peripheral/Venous Blood Culture - Preliminary NO GROWTH AFTER 24 HOURS Hubbard/IV: Voiding Method Incontinent Active Medications - Current Medications Current Medications: Generic Name Dose Route Start Last Admin Trade Name Freq PRN Reason Stop Dose Admin Acetaminophen 650 mg 04/07/21 18:19 Acetaminophen 325 Mg Tab PO Q4H PRN Pain MILD(1-3)/Fever >100.5/MILLER Albuterol 2.5 mg 04/07/21 18:19 Albuterol 2.5 Mg/3 Ml Nebu IH Q4HRT PRN Shortness Of Breath Ascorbic Acid 500 mg 04/07/21 22:00 04/09/21 11:10 Ascorbic Acid 500 Mg Tab PO Not Given BID BROOKS Aspirin 81 mg 04/09/21 10:00 04/09/21 11:09 Aspirin 81 Mg Tab Chew PO Not Given QDAY BROOKS Cholecalciferol 1,000 unit 04/08/21 10:00 04/09/21 11:10 Cholecalciferol (Vit D3) 1000 Unit (25 Mcg) Tab PO Not Given QDAY BROOKS Dextrose 50 ml 04/08/21 08:03 Dextrose 50% In Water (25gm) 50 Ml Syringe IV Q30MIN PRN Hypoglycemia Protocol Enoxaparin Sodium 30 mg 04/09/21 13:00 04/09/21 12:18 Enoxaparin 30 Mg/0.3 Ml Inj SUB-Q 30 mg QDAY BROOKS Administration Protocol Hydromorphone HCl 0.25 mg 04/07/21 18:19 04/08/21 22:43 Hydromorphone 1 Mg/1 Ml Inj IV 0.25 mg Q4H PRN Administration Pain, Moderate (4-6) Hydromorphone HCl 0.5 mg 04/07/21 18:19 Hydromorphone 1 Mg/1 Ml Inj IV Q12H PRN Pain , Severe (7-10) Ceftriaxone Sodium 2 gm in 100 mls @ 200 mls/hr 04/08/21 10:00 04/09/21 11:17 Rocephin/Ns 2 Gm/100 Ml IV 04/11/21 10:29 200 mls/hr Q24HR BROOKS Administration Protocol Azithromycin 500 mg in 250 mls @ 250 mls/hr 04/07/21 21:30 04/09/21 11:18 Zithromax/Ns IV 04/11/21 10:59 250 mls/hr Q24HR BROOKS Administration Protocol Sodium Chloride 1,000 mls @ 60 mls/hr 04/08/21 23:00 04/08/21 22:43 Nacl 0.45% 1000 Ml IV 60 mls/hr DIRECT BROOKS Administration Amiodarone HCl 900 mg/ 500 mls @ 16.667 mls/hr 04/09/21 13:00 Dextrose IV DIRECT BROOKS Protocol 0.5 MG/MIN Insulin Glargine 10 units 04/08/21 14:00 04/09/21 11:09 Insulin Glargine 100 Units/Ml SUB-Q Not Given QDAY [facility] Insulin Human Lispro 0 unit 04/08/21 12:00 04/09/21 12:00 Insulin Lispro 100 Unit/Ml SUB-Q 4 unit Q6HR BROOKS Administration Protocol Methylprednisolone Sodium Succinate 40 mg 04/07/21 20:00 04/09/21 12:21 Methylprednisolone Sod Succinate 40 Mg/1 Ml Inj IV 40 mg Q8H BROOKS Administration Ondansetron HCl 4 mg 04/07/21 18:19 Ondansetron 4 Mg/2 Ml Inj IV Q8H PRN Nausea And Vomiting Oxycodone/Acetaminophen 1 tab 04/07/21 18:19 Oxycodone /Acetaminophen 5-325mg Tab PO Q12H PRN Pain, Moderate (4-6) Sodium Chloride 10 ml 04/07/21 22:00 04/09/21 11:19 Sodium Chloride 0.9% 10 Ml Flush Syringe IV 10 ml BID BROOKS Administration Sodium Chloride 10 ml 04/07/21 18:19 Sodium Chloride 0.9% 10 Ml Flush Syringe IV PRN PRN LINE FLUSH Zinc Sulfate 220 mg 04/07/21 22:00 04/09/21 11:10 Zinc Sulfate 220 Mg Cap PO Not Given BID BROOKS
[2021-04-09] MEDS: AMIODARONE 900 MG in DEXTROSE 5% IN WATER 482 ML IV SCH (22:03)
[2021-04-09] MEDS: SODIUM CHLORIDE 0.45% 1000 ML 1,000 ML IV SCH (22:03)
[2021-04-10] MEDS: ASCORBIC ACID 500 MG TAB PO SCH ×4 (04:49→21:51)
[2021-04-10] MEDS: ZINC SULFATE 220 MG CAP PO SCH ×4 (04:49→21:51)
[2021-04-10] MEDS: INSULIN LISPRO 100 UNIT/ML SUB-Q SCH ×5 (04:49→17:36)
[2021-04-10] MEDS: methylPREDNISolone Sod Succinate 40 MG/1 ML INJ IV SCH ×3 (06:16→21:50)
--- NOTE | 2021-04-10 07:28 | Progress Note ---
Hospitalist Physical - Constitutional Vitals: Temp Pulse Resp BP Pulse Ox 97.8 F 132 H 18 94/80 95 04/10/21 00:23 04/10/21 00:23 04/10/21 00:23 04/10/21 00:23 04/10/21 00:23 General appearance: Present: no acute distress HEART Score - HEART Score Troponin: Troponin T 0.106 ng/mL (0.00-0.029) H* 04/08/21 09:18 Results - Labs CBC & Chem 7: 04/09/21 09:09 04/09/21 09:09 Labs: Laboratory Last Values WBC 15.0 K/mm3 (4.5-11.0) H 04/09/21 09:09 RBC 4.66 M/mm3 (3.65-5.03) 04/09/21 09:09 Hgb 13.7 gm/dl (10.1-14.3) 04/09/21 09:09 Hct 41.5 % (30.3-42.9) 04/09/21 09:09 MCV 89 fl (79-97) 04/09/21 09:09 MCH 30 pg (28-32) 04/09/21 09:09 MCHC 33 % (30-34) 04/09/21 09:09 RDW 14.9 % (13.2-15.2) 04/09/21 09:09 Plt Count 181 K/mm3 (140-440) 04/09/21 09:09 Lymph % (Auto) 10.7 % (13.4-35.0) L 04/08/21 06:49 [place] % (Auto) 3.0 % (0.0-7.3) 04/08/21 06:49 Eos % (Auto) 0.0 % (0.0-4.3) 04/08/21 06:49 Baso % (Auto) 0.1 % (0.0-1.8) 04/08/21 06:49 Lymph # (Auto) 1.2 K/mm3 (1.2-5.4) 04/08/21 06:49 [place] # (Auto) 0.3 K/mm3 (0.0-0.8) 04/08/21 06:49 Eos # (Auto) 0.0 K/mm3 (0.0-0.4) 04/08/21 06:49 Baso # (Auto) 0.0 K/mm3 (0.0-0.1) 04/08/21 06:49 Seg Neutrophils % 86.2 % (40.0-70.0) H 04/08/21 06:49 Seg Neutrophils # 9.9 K/mm3 (1.8-7.7) H 04/08/21 06:49 PT 18.1 Sec. (12.2-14.9) H 04/07/21 16:51 INR 1.45 (0.87-1.13) H 04/07/21 16:51 APTT 30.4 Sec. (24.2-36.6) 04/07/21 16:51 Sodium 167 mmol/L (137-145) H* 04/09/21 09:09 Potassium 3.9 mmol/L (3.6-5.0) 04/09/21 09:09 Chloride 134.0 mmol/L (98-107) H 04/09/21 09:09 Carbon Dioxide 24 mmol/L (22-30) 04/09/21 09:09 Anion Gap 13 mmol/L 04/09/21 09:09 BUN 76 mg/dL (7-17) H 04/09/21 09:09 Creatinine 1.3 mg/dL (0.6-1.2) H 04/09/21 09:09 Estimated GFR 39 ml/min 04/09/21 09:09 BUN/Creatinine Ratio 58 % 04/09/21 09:09 Glucose 251 mg/dL (65-100) H 04/09/21 09:09 POC Glucose 226 mg/dL (70-105) H 04/10/21 06:58 Hemoglobin A1c 9.0 % (4-6) H 04/08/21 09:18 Lactic Acid 1.70 mmol/L (0.7-2.0) 04/08/21 09:18 Calcium 9.1 mg/dL (8.4-10.2) 04/09/21 09:09 Total Bilirubin 0.50 mg/dL (0.1-1.2) 04/09/21 09:09 AST 77 units/L (5-40) H 04/09/21 09:09 ALT 62 units/L (7-56) H 04/09/21 09:09 Alkaline Phosphatase 83 units/L (35-129) 04/09/21 09:09 Troponin T 0.106 ng/mL (0.00-0.029) H* 04/08/21 09:18 NT-Pro-B Natriuret Pep 2713 pg/mL (0-900) H 04/07/21 16:51 Total Protein 6.4 g/dL (6.3-8.2) 04/09/21 09:09 Albumin 3.2 g/dL (3.9-5) L 04/09/21 09:09 Albumin/Globulin Ratio 1.0 % 04/09/21 09:09 Triglycerides 245 mg/dL (2-149) H 04/07/21 16:51 Cholesterol 150 mg/dL (50-199) 04/07/21 16:51 LDL Cholesterol Direct 70 mg/dL (50-130) 04/07/21 16:51 HDL Cholesterol 35 mg/dL (40-59) L 04/07/21 16:51 Cholesterol/HDL Ratio 4.28 % 04/07/21 16:51 Urine Color Leyla (Yellow) 04/07/21 18:20 Urine Turbidity Cloudy (Clear) 04/07/21 18:20 Urine pH 5.0 (5.0-7.0) 04/07/21 18:20 Ur Specific [place] 1.026 (1.003-1.030) 04/07/21 18:20 Urine Protein 100 mg/dl mg/dL (Negative) 04/07/21 18:20 Urine Glucose (UA) 50 mg/dL (Negative) 04/07/21 18:20 Urine Ketones Tr mg/dL (Negative) 04/07/21 18:20 Urine Blood Neg (Negative) 04/07/21 18:20 Urine Nitrite Neg (Negative) 04/07/21 18:20 Urine Bilirubin Neg (Negative) 04/07/21 18:20 Urine Urobilinogen < 2.0 mg/dL (<2.0) 04/07/21 18:20 Ur Leukocyte Esterase Tr (Negative) 04/07/21 18:20 Urine WBC (Auto) 12.0 /HPF (0.0-6.0) H 04/07/21 18:20 Urine RBC (Auto) 5.0 /HPF (0.0-6.0) 04/07/21 18:20 U Epithel Cells (Auto) 17.0 /HPF (0-13.0) H 04/07/21 18:20 Urine Bacteria (Auto) 2+ /HPF (Negative) 04/07/21 18:20 Ur Renal Epithelial Cell 6 /LPF 04/07/21 18:20 Hyaline Casts 42 /LPF 04/07/21 18:20 Urine Mucus 3+ /HPF 04/07/21 18:20 Urine Opiates Screen Negative 04/07/21 18:20 Urine Methadone Screen Negative 04/07/21 18:20 Ur Barbiturates Screen Negative 04/07/21 18:20 Ur Phencyclidine Scrn Negative 04/07/21 18:20 Ur Amphetamines Screen Negative 04/07/21 18:20 U Benzodiazepines Scrn Negative 04/07/21 18:20 Urine Cocaine Screen Negative 04/07/21 18:20 U Marijuana (THC) Screen Negative 04/07/21 18:20 Drugs of Abuse Note Disclamer 04/07/21 18:20 Blood Type A POSITIVE 04/07/21 18:31 Antibody Screen Negative 04/07/21 18:31 Microbiology: Microbiology 04/07/21 16:51 Peripheral/Venous Blood Culture - Preliminary NO GROWTH AFTER 48 HOURS 04/07/21 16:59 Peripheral/Venous Blood Culture - Preliminary NO GROWTH AFTER 48 HOURS 04/07/21 18:20 Urine,Clean Catch Urine Culture - Final NO GROWTH AFTER 48 HOURS Hubbard/IV: Voiding Method Incontinent Active Medications - Current Medications Current Medications: Generic Name Dose Route Start Last Admin Trade Name Freq PRN Reason Stop Dose Admin Acetaminophen 650 mg 04/07/21 18:19 Acetaminophen 325 Mg Tab PO Q4H PRN Pain MILD(1-3)/Fever >100.5/MILLER Albuterol 2.5 mg 04/07/21 18:19 Albuterol 2.5 Mg/3 Ml Nebu IH Q4HRT PRN Shortness Of Breath Ascorbic Acid 500 mg 04/07/21 22:00 04/10/21 04:49 Ascorbic Acid 500 Mg Tab PO Not Given BID BROOKS Aspirin 81 mg 04/09/21 10:00 04/09/21 11:09 Aspirin 81 Mg Tab Chew PO Not Given QDAY BROOKS Cholecalciferol 1,000 unit 04/08/21 10:00 04/09/21 11:10 Cholecalciferol (Vit D3) 1000 Unit (25 Mcg) Tab PO Not Given QDAY BROOKS Dextrose 50 ml 04/08/21 08:03 Dextrose 50% In Water (25gm) 50 Ml Syringe IV Q30MIN PRN Hypoglycemia Protocol Enoxaparin Sodium 30 mg 04/09/21 13:00 04/09/21 12:18 Enoxaparin 30 Mg/0.3 Ml Inj SUB-Q 30 mg QDAY BROOKS Administration Protocol Hydromorphone HCl 0.25 mg 04/07/21 18:19 04/08/21 22:43 Hydromorphone 1 Mg/1 Ml Inj IV 0.25 mg Q4H PRN Administration Pain, Moderate (4-6) Hydromorphone HCl 0.5 mg 04/07/21 18:19 Hydromorphone 1 Mg/1 Ml Inj IV Q12H PRN Pain , Severe (7-10) Ceftriaxone Sodium 2 gm in 100 mls @ 200 mls/hr 04/08/21 10:00 04/09/21 11:17 Rocephin/Ns 2 Gm/100 Ml IV 04/11/21 10:29 200 mls/hr Q24HR BROOKS Administration Protocol Azithromycin 500 mg in 250 mls @ 250 mls/hr 04/07/21 21:30 04/09/21 11:18 Zithromax/Ns IV 04/11/21 10:59 250 mls/hr Q24HR BROOKS Administration Protocol Sodium Chloride 1,000 mls @ 60 mls/hr 04/08/21 23:00 04/09/21 22:03 Nacl 0.45% 1000 Ml IV 60 mls/hr DIRECT BROOKS Administration Amiodarone HCl 900 mg/ 500 mls @ 16.667 mls/hr 04/09/21 13:00 04/09/21 22:03 Dextrose IV 0.5 mg/min DIRECT BROOKS 16.667 mls/hr Administration Protocol 0.5 MG/MIN Insulin Glargine 10 units 04/08/21 14:00 04/09/21 11:09 Insulin Glargine 100 Units/Ml SUB-Q Not Given QDAY BROOKS Insulin Human Lispro 0 unit 04/08/21 12:00 04/10/21 07:19 Insulin Lispro 100 Unit/Ml SUB-Q Not Given Q6HR BROOKS Protocol Methylprednisolone Sodium Succinate 40 mg 04/07/21 20:00 04/10/21 06:16 Methylprednisolone Sod Succinate 40 Mg/1 Ml Inj IV 40 mg Q8H BROOKS Administration Ondansetron HCl 4 mg 04/07/21 18:19 Ondansetron 4 Mg/2 Ml Inj IV Q8H PRN Nausea And Vomiting Oxycodone/Acetaminophen 1 tab 04/07/21 18:19 Oxycodone /Acetaminophen 5-325mg Tab PO Q12H PRN Pain, Moderate (4-6) Sodium Chloride 10 ml 04/07/21 22:00 04/09/21 22:05 Sodium Chloride 0.9% 10 Ml Flush Syringe IV 10 ml BID BROOKS Administration Sodium Chloride 10 ml 04/07/21 18:19 04/10/21 06:17 Sodium Chloride 0.9% 10 Ml Flush Syringe IV 10 ml PRN PRN Administration LINE FLUSH Zinc Sulfate 220 mg 04/07/21 22:00 04/10/21 04:49 Zinc Sulfate 220 Mg Cap PO Not Given BID BROOKS
--- NOTE | 2021-04-10 09:36 | Progress Note ---
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 fib with RVR * Start low-dose amiodarone gtt * Continue Lovenox Acute Hypoxic Respiratory failure COVID-19 PNA Sepsis * Patient found to be COVID positive and hospitalized last week * ID follow NSTEMI type 2 * Elevated troponins likely a result of supply demand mismatch from sepsis secondary to COVID PNA. Noted that troponins have down trended from patients admission to [facility] last week * EKG shows normal sinus rhythm 84 with RBBB, no acute ischemic changes. Troponins noted to be elevated and steady at 0.1. * Echo 03/27/2021- Normal LV dimensions. LV wall mass/thickness are grossly normal LV systolic function is normal with an estimated LVEF of >70%. Hypernatremia * Management per primary * Agree with volume repletion * Consider nephrology consultation SHANIA * Management per primary team Plan discussed with nurse. We will continue to follow. For some reason amiodarone was not started yesterday. Please restart today. Subjective Interval history: No changes overnight Objective Vital Signs Temp Pulse Resp BP Pulse Ox 04/10/21 00:23 97.8 F 132 H 18 94/80 95 04/09/21 17:51 98.7 F 95 H 18 128/60 93 04/09/21 12:01 98.6 F 98 H 18 107/48 94 04/09/21 12:00 96 04/09/21 09:36 99 - Physical Examination HEENT: Positive: PERRL, Mucus Membranes Dry Neck: Positive: trachea midline Neuro: Positive: Other (unable to assess) Abdomen: Positive: Active Bowel Sounds Skin: Negative: Rash, Suspicious Lesions, Ulceration Extremities: Present: upper extr. pulses, lower extr. pulses, edema (trace) - Labs and Meds Cardiac Enzymes 04/09/21 Range/Units 09:09 AST 77 H (5-40) units/L CBC 04/09/21 Range/Units 09:09 WBC 15.0 H (4.5-11.0) K/mm3 RBC 4.66 (3.65-5.03) M/mm3 Hgb 13.7 (10.1-14.3) gm/dl Hct 41.5 (30.3-42.9) % Plt Count 181 (140-440) K/mm3 Comprehensive Metabolic Panel 04/09/21 Range/Units 09:09 Sodium 167 H* (137-145) mmol/L Potassium 3.9 (3.6-5.0) mmol/L Chloride 134.0 H (98-107) mmol/L Carbon Dioxide 24 (22-30) mmol/L BUN 76 H (7-17) mg/dL Creatinine 1.3 H (0.6-1.2) mg/dL Glucose 251 H (65-100) mg/dL Calcium 9.1 (8.4-10.2) mg/dL AST 77 H (5-40) units/L ALT 62 H (7-56) units/L Alkaline Phosphatase 83 (35-129) units/L Total Protein 6.4 (6.3-8.2) g/dL Albumin 3.2 L (3.9-5) g/dL - Imaging and Cardiology EKG: report reviewed, image reviewed Echo: report reviewed - EKG Sinus rhythms and dysrhythmias: sinus rhythm AV and intraventricular conduction: right bundle branch block
[2021-04-10] MEDS: ASPIRIN 81 MG TAB CHEW PO SCH ×2 (10:11→12:06)
[2021-04-10] MEDS: ENOXAPARIN 30 MG/0.3 ML INJ SUB-Q SCH (10:12)
[2021-04-10] MEDS: INSULIN GLARGINE 100 UNITS/ML SUB-Q SCH (10:12)
[2021-04-10] MEDS: cefTRIAXone/NS 2 GM/100 ML 2 GM/100 ML BAG IV SCH (10:12)
[2021-04-10] MEDS: CHOLECALCIFEROL (VIT D3) 1000 UNIT (25 mcg) TAB PO SCH (10:13)
[2021-04-10] MEDS: AZITHROMYCIN/NS 500 MG/250 ML 500 MG/250 ML BAG IV SCH (10:27)
--- NOTE | 2021-04-10 15:05 | Progress Note ---
Assessment and Plan Assessment and plan: #Acute hypoxic respiratory failure #Severe COVID-19 infection -Recently hospitalized at [facility] due to COVID-19 infection -Transferred to [facility] from alf -Currently on nonrebreather -Discussion with next of kin, wants patient to be discharged with hospice -We will continue current care until patient accepted by hospice agency #Hypernatremia -Sodium 167 today -Likely due to volume depletion, patient has not eaten or drink adequately since being in the alf -3 water deficit calculated 3.8 L -Every 6 hours sodium checks -Continue 1/2 NS at 60 cc an hour -Nephrology consulted, appreciate assistance #Elevated troponin -Troponin 0.106 -Cardiology consulted #Atrial fibrillation -Cardiology managing -amiodarone gtt #SHANIA -Likely secondary to volume depletion, will continue to monitor #Type 2 diabetes -A1c 9.0% -Diagnosis confirmed by next of kin, takes Januvia at home -10 units Lantus qday plus SSI -N.p.o. for now Disposition Plan: home with hospice Total Time Spent with Patient (Minutes): 30 minutes History Interval history: Does not respond to any commands. Able to protect airway, appears to be comfortable. Hospitalist Physical - Physical exam Narrative exam: GENERAL: Thin elderly woman, lying in bed.. HEENT: Nonrebreather at 10 L. CHEST/LUNGS: Coarse breath sounds bilaterally. HEART/CARDIOVASCULAR: RRR. No murmur, rubs or gallops appreciated. ABDOMEN: +BS. NT/ND. SKIN: Poor skin turgor NEURO: Unable to assess EXTREMITIES: No cyanosis, cubbing or edema. PSYCH: Unable to assess - Constitutional Vitals: Temp Pulse Resp BP Pulse Ox 97.5 F L 90 18 119/62 97 04/10/21 11:22 04/10/21 11:22 04/10/21 11:22 04/10/21 11:22 04/10/21 11:22 General appearance: Present: no acute distress HEART Score - HEART Score Troponin: Troponin T 0.106 ng/mL (0.00-0.029) H* 04/08/21 09:18 Results - Labs CBC & Chem 7: 04/09/21 09:09 04/09/21 09:09 Labs: Laboratory Last Values WBC 15.0 K/mm3 (4.5-11.0) H 04/09/21 09:09 RBC 4.66 M/mm3 (3.65-5.03) 04/09/21 09:09 Hgb 13.7 gm/dl (10.1-14.3) 04/09/21 09:09 Hct 41.5 % (30.3-42.9) 04/09/21 09:09 MCV 89 fl (79-97) 04/09/21 09:09 MCH 30 pg (28-32) 04/09/21 09:09 MCHC 33 % (30-34) 04/09/21 09:09 RDW 14.9 % (13.2-15.2) 04/09/21 09:09 Plt Count 181 K/mm3 (140-440) 04/09/21 09:09 Lymph % (Auto) 10.7 % (13.4-35.0) L 04/08/21 06:49 [place] % (Auto) 3.0 % (0.0-7.3) 04/08/21 06:49 Eos % (Auto) 0.0 % (0.0-4.3) 04/08/21 06:49 Baso % (Auto) 0.1 % (0.0-1.8) 04/08/21 06:49 Lymph # (Auto) 1.2 K/mm3 (1.2-5.4) 04/08/21 06:49 [place] # (Auto) 0.3 K/mm3 (0.0-0.8) 04/08/21 06:49 Eos # (Auto) 0.0 K/mm3 (0.0-0.4) 04/08/21 06:49 Baso # (Auto) 0.0 K/mm3 (0.0-0.1) 04/08/21 06:49 Seg Neutrophils % 86.2 % (40.0-70.0) H 04/08/21 06:49 Seg Neutrophils # 9.9 K/mm3 (1.8-7.7) H 04/08/21 06:49 PT 18.1 Sec. (12.2-14.9) H 04/07/21 16:51 INR 1.45 (0.87-1.13) H 04/07/21 16:51 APTT 30.4 Sec. (24.2-36.6) 04/07/21 16:51 Sodium 167 mmol/L (137-145) H* 04/09/21 09:09 Potassium 3.9 mmol/L (3.6-5.0) 04/09/21 09:09 Chloride 134.0 mmol/L (98-107) H 04/09/21 09:09 Carbon Dioxide 24 mmol/L (22-30) 04/09/21 09:09 Anion Gap 13 mmol/L 04/09/21 09:09 BUN 76 mg/dL (7-17) H 04/09/21 09:09 Creatinine 1.3 mg/dL (0.6-1.2) H 04/09/21 09:09 Estimated GFR 39 ml/min 04/09/21 09:09 BUN/Creatinine Ratio 58 % 04/09/21 09:09 Glucose 251 mg/dL (65-100) H 04/09/21 09:09 POC Glucose 239 mg/dL (70-105) H 04/10/21 11:19 Hemoglobin A1c 9.0 % (4-6) H 04/08/21 09:18 Lactic Acid 1.70 mmol/L (0.7-2.0) 04/08/21 09:18 Calcium 9.1 mg/dL (8.4-10.2) 04/09/21 09:09 Total Bilirubin 0.50 mg/dL (0.1-1.2) 04/09/21 09:09 AST 77 units/L (5-40) H 04/09/21 09:09 ALT 62 units/L (7-56) H 04/09/21 09:09 Alkaline Phosphatase 83 units/L (35-129) 04/09/21 09:09 Troponin T 0.106 ng/mL (0.00-0.029) H* 04/08/21 09:18 NT-Pro-B Natriuret Pep 2713 pg/mL (0-900) H 04/07/21 16:51 Total Protein 6.4 g/dL (6.3-8.2) 04/09/21 09:09 Albumin 3.2 g/dL (3.9-5) L 04/09/21 09:09 Albumin/Globulin Ratio 1.0 % 04/09/21 09:09 Triglycerides 245 mg/dL (2-149) H 04/07/21 16:51 Cholesterol 150 mg/dL (50-199) 04/07/21 16:51 LDL Cholesterol Direct 70 mg/dL (50-130) 04/07/21 16:51 HDL Cholesterol 35 mg/dL (40-59) L 04/07/21 16:51 Cholesterol/HDL Ratio 4.28 % 04/07/21 16:51 Urine Color Leyla (Yellow) 04/07/21 18:20 Urine Turbidity Cloudy (Clear) 04/07/21 18:20 Urine pH 5.0 (5.0-7.0) 04/07/21 18:20 Ur Specific Iva 1.026 (1.003-1.030) 04/07/21 18:20 Urine Protein 100 mg/dl mg/dL (Negative) 04/07/21 18:20 Urine Glucose (UA) 50 mg/dL (Negative) 04/07/21 18:20 Urine Ketones Tr mg/dL (Negative) 04/07/21 18:20 Urine Blood Neg (Negative) 04/07/21 18:20 Urine Nitrite Neg (Negative) 04/07/21 18:20 Urine Bilirubin Neg (Negative) 04/07/21 18:20 Urine Urobilinogen < 2.0 mg/dL (<2.0) 04/07/21 18:20 Ur Leukocyte Esterase Tr (Negative) 04/07/21 18:20 Urine WBC (Auto) 12.0 /HPF (0.0-6.0) H 04/07/21 18:20 Urine RBC (Auto) 5.0 /HPF (0.0-6.0) 04/07/21 18:20 U Epithel Cells (Auto) 17.0 /HPF (0-13.0) H 04/07/21 18:20 Urine Bacteria (Auto) 2+ /HPF (Negative) 04/07/21 18:20 Ur Renal Epithelial Cell 6 /LPF 04/07/21 18:20 Hyaline Casts 42 /LPF 04/07/21 18:20 Urine Mucus 3+ /HPF 04/07/21 18:20 Urine Opiates Screen Negative 04/07/21 18:20 Urine Methadone Screen Negative 04/07/21 18:20 Ur Barbiturates Screen Negative 04/07/21 18:20 Ur Phencyclidine Scrn Negative 04/07/21 18:20 Ur Amphetamines Screen Negative 04/07/21 18:20 U Benzodiazepines Scrn Negative 04/07/21 18:20 Urine Cocaine Screen Negative 04/07/21 18:20 U Marijuana (THC) Screen Negative 04/07/21 18:20 Drugs of Abuse Note Disclamer 04/07/21 18:20 Coronavirus (PCR) Positive (Negative) A 04/09/21 Unknown Blood Type A POSITIVE 04/07/21 18:31 Antibody Screen Negative 04/07/21 18:31 Microbiology: Microbiology 04/07/21 16:51 Peripheral/Venous Blood Culture - Preliminary NO GROWTH AFTER 48 HOURS 04/07/21 16:59 Peripheral/Venous Blood Culture - Preliminary NO GROWTH AFTER 48 HOURS 04/07/21 18:20 Urine,Clean Catch Urine Culture - Final NO GROWTH AFTER 48 HOURS Hubbard/IV: Voiding Method Incontinent Active Medications - Current Medications Current Medications: Generic Name Dose Route Start Last Admin Trade Name Freq PRN Reason Stop Dose Admin Acetaminophen 650 mg 04/07/21 18:19 Acetaminophen 325 Mg Tab PO Q4H PRN Pain MILD(1-3)/Fever >100.5/MILLER Albuterol 2.5 mg 04/07/21 18:19 Albuterol 2.5 Mg/3 Ml Nebu IH Q4HRT PRN Shortness Of Breath Ascorbic Acid 500 mg 04/07/21 22:00 04/10/21 12:05 Ascorbic Acid 500 Mg Tab PO Not Given BID BROOKS Aspirin 81 mg 04/09/21 10:00 04/10/21 12:06 Aspirin 81 Mg Tab Chew PO Not Given QDAY BROOKS Cholecalciferol 1,000 unit 04/08/21 10:00 04/10/21 10:13 Cholecalciferol (Vit D3) 1000 Unit (25 Mcg) Tab PO 1,000 unit QDAY BROOKS Administration Dextrose 50 ml 04/08/21 08:03 Dextrose 50% In Water (25gm) 50 Ml Syringe IV Q30MIN PRN Hypoglycemia Protocol Enoxaparin Sodium 30 mg 04/09/21 13:00 04/10/21 10:12 Enoxaparin 30 Mg/0.3 Ml Inj SUB-Q 30 mg QDAY BROOKS Administration Protocol Hydromorphone HCl 0.25 mg 04/07/21 18:19 04/08/21 22:43 Hydromorphone 1 Mg/1 Ml Inj IV 0.25 mg Q4H PRN Administration Pain, Moderate (4-6) Hydromorphone HCl 0.5 mg 04/07/21 18:19 Hydromorphone 1 Mg/1 Ml Inj IV Q12H PRN Pain , Severe (7-10) Ceftriaxone Sodium 2 gm in 100 mls @ 200 mls/hr 04/08/21 10:00 04/10/21 10:12 Rocephin/Ns 2 Gm/100 Ml IV 04/11/21 10:29 200 mls/hr Q24HR BROOKS Administration Protocol Azithromycin 500 mg in 250 mls @ 250 mls/hr 04/07/21 21:30 04/10/21 10:27 Zithromax/Ns IV 04/11/21 10:59 250 mls/hr Q24HR BROOKS Administration Protocol Sodium Chloride 1,000 mls @ 60 mls/hr 04/08/21 23:00 04/09/21 22:03 Nacl 0.45% 1000 Ml IV 60 mls/hr DIRECT BROOKS Administration Amiodarone HCl 900 mg/ 500 mls @ 16.667 mls/hr 04/09/21 13:00 04/09/21 22:03 Dextrose IV 0.5 mg/min DIRECT BROOKS 16.667 mls/hr Administration Protocol 0.5 MG/MIN Insulin Glargine 10 units 04/08/21 14:00 04/10/21 10:12 Insulin Glargine 100 Units/Ml SUB-Q 10 units QDAY BROOKS Administration Insulin Human Lispro 0 unit 04/08/21 12:00 04/10/21 12:05 Insulin Lispro 100 Unit/Ml SUB-Q Not Given Q6HR [facility] Protocol Methylprednisolone Sodium Succinate 40 mg 04/07/21 20:00 04/10/21 14:01 Methylprednisolone Sod Succinate 40 Mg/1 Ml Inj IV 40 mg Q8H BROOKS Administration Ondansetron HCl 4 mg 04/07/21 18:19 Ondansetron 4 Mg/2 Ml Inj IV Q8H PRN Nausea And Vomiting Oxycodone/Acetaminophen 1 tab 04/07/21 18:19 Oxycodone /Acetaminophen 5-325mg Tab PO Q12H PRN Pain, Moderate (4-6) Sodium Chloride 10 ml 04/07/21 22:00 04/10/21 10:13 Sodium Chloride 0.9% 10 Ml Flush Syringe IV 10 ml BID BROOKS Administration Sodium Chloride 10 ml 04/07/21 18:19 04/10/21 06:17 Sodium Chloride 0.9% 10 Ml Flush Syringe IV 10 ml PRN PRN Administration LINE FLUSH Zinc Sulfate 220 mg 04/07/21 22:00 04/10/21 12:06 Zinc Sulfate 220 Mg Cap PO Not Given BID BROOKS
[2021-04-10] MEDS: SODIUM CHLORIDE 0.45% 1000 ML 1,000 ML IV SCH (17:33)
[2021-04-10] MEDS: AMIODARONE 900 MG in DEXTROSE 5% IN WATER 482 ML IV SCH (17:33)
--- NOTE | 2021-04-10 18:17 | Consultation ---
History of Present Illness - Reason for Consult Consult date: 04/10/21 acute renal failure, hypernatremia - History of Present Illness History obtained from records due to mental status Mrs. Moreau is an 85yo SNF resident with Vascular Dementia, Cerebral Atherosclerosis, Debility and Coronavirus Infection presents to ED for evaluation. Per nursing home facility staff the patient experienced decreased responsiveness two days prior to admission. She was found to have a pulse oximetry of 86% on room air. EMS was notified and upon arrival the patient was found to be in respiratory distress and was subsequently placed on supplemental oxygen and transported to [facility] for further care and evaluation of the aforementioned symptoms. The patient was seen and evaluated in the emergency department wher she was found to have a pulse oximetry of 86% on room air and HR in 120s Chest x-ray revealed bilateral pneumonia. The patient was found to have sepsis, acidosis, acute kidney injury, as well as severe hypernatremia. The patient was admitted to medical floor and initiated on sepsis protocol, pneumonia protocol, as well as coronavirus protocol. Nephrology consulted due to persistent hypernatremia.. Past History Past Medical History: diabetes, DVT, hypertension, other (dementia) Past Surgical History: No surgical history, Other Social history: single. denies: smoking, alcohol abuse, prescription drug abuse Family history: no significant family history (Reviewed) Medications and Allergies Allergies Allergy/AdvReac Type Severity Reaction Status Date / Time No Known Allergies Allergy Unverified 04/07/21 17:07 Active Meds: Active Medications Acetaminophen (Acetaminophen 325 Mg Tab) 650 mg PO Q4H PRN PRN Reason: Pain MILD(1-3)/Fever >100.5/MILLER Albuterol (Albuterol 2.5 Mg/3 Ml Nebu) 2.5 mg IH Q4HRT PRN PRN Reason: Shortness Of Breath Ascorbic Acid (Ascorbic Acid 500 Mg Tab) 500 mg PO BID [facility] Last Admin: 04/10/21 12:05 Dose: Not Given Documented by: Aspirin (Aspirin 81 Mg Tab Chew) 81 mg PO QDAY [facility] Last Admin: 04/10/21 12:06 Dose: Not Given Documented by: Cholecalciferol (Cholecalciferol (Vit D3) 1000 Unit (25 Mcg) Tab) 1,000 unit PO QDAY [facility] Last Admin: 04/10/21 10:13 Dose: 1,000 unit Documented by: Dextrose (Dextrose 50% In Water (25gm) 50 Ml Syringe) 50 ml IV Q30MIN PRN; Protocol PRN Reason: Hypoglycemia Enoxaparin Sodium (Enoxaparin 30 Mg/0.3 Ml Inj) 30 mg SUB-Q QDAY BROOKS; Protocol Last Admin: 04/10/21 10:12 Dose: 30 mg Documented by: Hydromorphone HCl (Hydromorphone 1 Mg/1 Ml Inj) 0.25 mg IV Q4H PRN PRN Reason: Pain, Moderate (4-6) Last Admin: 04/08/21 22:43 Dose: 0.25 mg Documented by: Hydromorphone HCl (Hydromorphone 1 Mg/1 Ml Inj) 0.5 mg IV Q12H PRN PRN Reason: Pain , Severe (7-10) Ceftriaxone Sodium (Rocephin/Ns 2 Gm/100 Ml) 2 gm in 100 mls @ 200 mls/hr IV Q24HR BROOKS; Protocol Stop: 04/11/21 10:29 Last Admin: 04/10/21 10:12 Dose: 200 mls/hr Documented by: Azithromycin (Zithromax/Ns) 500 mg in 250 mls @ 250 mls/hr IV Q24HR BROOKS; Protocol Stop: 04/11/21 10:59 Last Admin: 04/10/21 10:27 Dose: 250 mls/hr Documented by: Sodium Chloride (Nacl 0.45% 1000 Ml) 1,000 mls @ 60 mls/hr IV DIRECT BROOKS Last Admin: 04/10/21 17:33 Dose: 60 mls/hr Documented by: Amiodarone HCl 900 mg/ (Dextrose) 500 mls @ 16.667 mls/hr IV DIRECT BROOKS; Protocol Last Admin: 04/10/21 17:33 Dose: 0.5 mg/min, 16.667 mls/hr Documented by: Insulin Glargine (Insulin Glargine 100 Units/Ml) 10 units SUB-Q QDAY BROOKS Last Admin: 04/10/21 10:12 Dose: 10 units Documented by: Insulin Human Lispro (Insulin Lispro 100 Unit/Ml) 0 unit SUB-Q Q6HR BROOKS; Protocol Last Admin: 04/10/21 17:36 Dose: 4 unit Documented by: Methylprednisolone Sodium Succinate (Methylprednisolone Sod Succinate 40 Mg/1 Ml Inj) 40 mg IV Q8H [facility] Last Admin: 04/10/21 14:01 Dose: 40 mg Documented by: Ondansetron HCl (Ondansetron 4 Mg/2 Ml Inj) 4 mg IV Q8H PRN PRN Reason: Nausea And Vomiting Oxycodone/Acetaminophen (Oxycodone /Acetaminophen 5-325mg Tab) 1 tab PO Q12H PRN PRN Reason: Pain, Moderate (4-6) Sodium Chloride (Sodium Chloride 0.9% 10 Ml Flush Syringe) 10 ml IV BID [facility] Last Admin: 04/10/21 10:13 Dose: 10 ml Documented by: Sodium Chloride (Sodium Chloride 0.9% 10 Ml Flush Syringe) 10 ml IV PRN PRN PRN Reason: LINE FLUSH Last Admin: 04/10/21 06:17 Dose: 10 ml Documented by: Zinc Sulfate (Zinc Sulfate 220 Mg Cap) 220 mg PO BID [facility] Last Admin: 04/10/21 12:06 Dose: Not Given Documented by: Review of Systems ROS unobtainable: due to mental status Exam - Vital Signs Vital signs: Vital Signs Pulse Resp BP Pulse Ox 103 H 25 H 109/68 96 04/07/21 16:47 04/07/21 16:47 04/07/21 16:47 04/07/21 16:47 - General Appearance General appearance: frail EENT: ATNC Respiratory: Other (unable to examine; isolation stethoscope not present in room) Heart: other (unable to examine; isolation stethoscope not present in room) Gastrointestinal: Absent: tenderness, distended Neurologic: other (awakens to tactile stimuli; nonverbal) Results - Lab Results 04/09/21 09:09 04/09/21 09:09 Most recent lab results Calcium 9.1 mg/dL (8.4-10.2) 04/09/21 09:09 Assessment and Plan Impression: * Acute kidney injury secondary to prerenal azotemia due to dehydration * Hypernatremia * Sepsis * Acute hypoxic respiratory failure secondary to COVID 19 PNA * COVID 19 infection * Atrial fibrillation with RVR Plan: * Will change 1/2 NS to D5W * Management of COVID 19 infecition/PNA per primary team * Rate control/anticoagulation per cardiology * Nutrition per primary team * Dose medications for renal function * Avoid potential nephrotoxins * AM labs
[2021-04-10] MEDS: DEXTROSE 5% IN WATER 1,000 ML IV SCH (18:26)
[2021-04-10 19:13] LABS: Hematocrit 41.8 % (30.3-42.9); Hemoglobin 13.3 gm/dl (10.1-14.3); Mean Corpuscular HGB Conc 32 % (30-34); Mean Corpuscular Volume 91 fl (79-97); Platelet Count 124 K/mm3 (140-440); Red Blood Count 4.62 M/mm3 (3.65-5.03); Red Cell Distribution Width 15.3 % (13.2-15.2)
[2021-04-10 19:16] LABS: Albumin 2.9 g/dL (3.9-5); Calcium 8.2 mg/dL (8.4-10.2)
[2021-04-11] MEDS: INSULIN LISPRO 100 UNIT/ML SUB-Q SCH ×3 (02:25→12:00)
[2021-04-11] MEDS: methylPREDNISolone Sod Succinate 40 MG/1 ML INJ IV SCH (04:51)
[2021-04-11] MEDS: DEXTROSE 5% IN WATER 1,000 ML IV SCH (05:29)
[2021-04-11] MEDS ORDERED: INSULIN GLARGINE 100 UNITS/ML SUB-Q SCH (10:00)
[2021-04-11] MEDS: cefTRIAXone/NS 2 GM/100 ML 2 GM/100 ML BAG IV SCH (10:35)
[2021-04-11] MEDS: ENOXAPARIN 30 MG/0.3 ML INJ SUB-Q SCH (10:37)
[2021-04-11] MEDS: AZITHROMYCIN/NS 500 MG/250 ML 500 MG/250 ML BAG IV SCH (10:37)
[2021-04-11] MEDS: CHOLECALCIFEROL (VIT D3) 1000 UNIT (25 mcg) TAB PO SCH (10:38)
[2021-04-11] MEDS: ZINC SULFATE 220 MG CAP PO SCH (10:38)
[2021-04-11] MEDS: ASCORBIC ACID 500 MG TAB PO SCH (10:38)
[2021-04-11] MEDS: ASPIRIN 81 MG TAB CHEW PO SCH (10:39)
--- NOTE | 2021-04-11 11:44 | Progress Note ---
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 Troponins noted to be elevated and steady at 0.1. * Echo 03/27/2021- Normal LV dimensions. LV wall mass/thickness are grossly normal LV systolic function is normal with an estimated LVEF of >70%. No regional wall motion abnormalities. LV diastolic function is indeterminate, Normal RV dimensions. RV systolic function is normal. LA/RA not fully visualized. Aortic valve with mildly-thickened and calcified leaflets. No aortic stenosis. No aortic regurgitation. Mitral valve appears normal. No mitral stenosis. No mitral regurgitation. Normal tricuspid valve morphology. No tricuspid regurgitation. Pulmonic valve not well seen. No pulmonic regurgitation. * Elevated troponins likely a result of supply demand mismatch from sepsis secondary to COVID PNA. Noted that troponins have down trended from patients admission to [facility] last week New onset A. fib with RVR * Low-dose amiodarone gtt ordered. Was not running during assessment * Continue Lovenox * Telemetry reviewed: patient currently afib with controlled rate Thrombocytopenia * Patient platelets noted to be decreasing * HIT testing ordered Hypernatremia SHANIA * Management per primary * Nephrology following Patient platelet count noted to be steadily decreasing HIT testing ordered. Stop amio gtt Patient seen in conjunction with Dr. Mnazanares who agrees with this plan of care. Will continue to follow - Patient Problems (1) NSTEMI (non-ST elevated myocardial infarction) Current Visit: Yes Status: Acute (2) SHANIA (acute kidney injury) Current Visit: Yes Status: Acute (3) Acute hypoxemic respiratory failure Current Visit: Yes Status: Acute (4) Coronavirus infection Current Visit: Yes Status: Acute (5) Elevated brain natriuretic peptide (BNP) level Current Visit: Yes Status: Acute (6) Hypernatremia Current Visit: Yes Status: Acute (7) Leukocytosis Current Visit: Yes Status: Acute (8) Sepsis Current Visit: Yes Status: Acute Subjective Date of service: 04/11/21 Principal diagnosis: COVID-19 Interval history: Patient lying in bed Afib 70s-80s on monitor Objective Vital Signs Temp Pulse Resp BP Pulse Ox 04/11/21 10:00 95 04/11/21 05:33 97.5 F L 77 18 126/85 97 04/11/21 00:17 97.5 F L 74 20 143/91 93 04/10/21 22:54 96 04/10/21 22:08 95 04/10/21 17:33 97.9 F 92 H 18 134/85 98 - Physical Examination General: No Apparent Distress HEENT: Positive: PERRL, Mucus Membranes Dry Neck: Positive: trachea midline Cardiac: Positive: irregularly irregular Lungs: Positive: Decreased Breath Sounds Neuro: Positive: Other (unable to assess) Abdomen: Positive: Active Bowel Sounds Skin: Negative: Rash, Suspicious Lesions, Ulceration Extremities: Present: upper extr. pulses, lower extr. pulses. Absent: edema (trace) - Labs and Meds Cardiac Enzymes 04/10/21 Range/Units 18:49 AST 48 H (5-40) units/L CBC 04/10/21 Range/Units 18:49 WBC 11.1 H (4.5-11.0) K/mm3 RBC 4.62 (3.65-5.03) M/mm3 Hgb 13.3 (10.1-14.3) gm/dl Hct 41.8 (30.3-42.9) % Plt Count 124 L (140-440) K/mm3 Comprehensive Metabolic Panel 04/10/21 04/10/21 04/11/21 Range/Units 18:49 23:19 05:17 Sodium 162 H* 158 H 159 H (137-145) mmol/L Potassium 4.6 (3.6-5.0) mmol/L Chloride 130.3 H (98-107) mmol/L Carbon Dioxide 23 (22-30) mmol/L BUN 63 H (7-17) mg/dL Creatinine 1.0 (0.6-1.2) mg/dL Glucose 330 H (65-100) mg/dL Calcium 8.2 L (8.4-10.2) mg/dL AST 48 H (5-40) units/L ALT 50 (7-56) units/L Alkaline Phosphatase 84 (35-129) units/L Total Protein 5.4 L (6.3-8.2) g/dL Albumin 2.9 L (3.9-5) g/dL 04/11/21 Range/Units 08:19 Sodium 159 H (137-145) mmol/L Potassium (3.6-5.0) mmol/L Chloride (98-107) mmol/L Carbon Dioxide (22-30) mmol/L BUN (7-17) mg/dL Creatinine (0.6-1.2) mg/dL Glucose (65-100) mg/dL Calcium (8.4-10.2) mg/dL AST (5-40) units/L ALT (7-56) units/L Alkaline Phosphatase (35-129) units/L Total Protein (6.3-8.2) g/dL Albumin (3.9-5) g/dL - Imaging and Cardiology EKG: report reviewed, image reviewed Echo: report reviewed - Telemetry EKG Rhythm: Atrial Fibrillation - EKG Supraventricular dysrhythmia: atrial fibrillation AV and intraventricular conduction: right bundle branch block
--- NOTE | 2021-04-11 13:46 | Progress Note ---
Assessment and Plan Impression: * Acute kidney injury secondary to prerenal azotemia due to dehydration * Hypernatremia * Sepsis * Acute hypoxic respiratory failure secondary to COVID 19 PNA * COVID 19 infection * Atrial fibrillation with RVR Plan: * Recommend free water replacement for hypernatremia, can use NG tube for replacement if patient unable to keep up with oral intake * Management of COVID 19 infecition/PNA per primary team * Rate control/anticoagulation per cardiology * Nutrition per primary team * Dose medications for renal function * Avoid potential nephrotoxins * Renal function and K has improved * Lactic acidosis has resolved * Will sign off. Please call with questions Subjective Date of service: 04/11/21 Principal diagnosis: COVID-19 Interval history: Nursing, interdisciplinary and consult notes were reviewed Vitals, input and output, medications and labs were reviewed Patient is incontinent Objective - Exam Narrative Exam: In order to reduce transmission risk given Covid, exam deferred. Primary team exam reviewed in detail. - Vital Signs Vital signs: Vital Signs - 12hr 04/11/21 04/11/21 05:33 10:00 Temperature 97.5 F L Pulse Rate 77 Respiratory 18 Rate Blood Pressure 126/85 O2 Sat by Pulse 97 95 Oximetry - Lab 04/10/21 18:49 04/11/21 08:19 Most recent lab results Calcium 8.2 mg/dL (8.4-10.2) L 04/10/21 18:49 Medications & Allergies - Medications Allergies/Adverse Reactions: Allergies No Known Allergies Allergy (Unverified 04/07/21 17:07) Active Medications: Generic Name Dose Route Start Last Admin Trade Name Freq PRN Reason Stop Dose Admin Acetaminophen 650 mg 04/07/21 18:19 Acetaminophen 325 Mg Tab PO Q4H PRN Pain MILD(1-3)/Fever >100.5/MILLER Albuterol 2.5 mg 04/07/21 18:19 Albuterol 2.5 Mg/3 Ml Nebu IH Q4HRT PRN Shortness Of Breath Ascorbic Acid 500 mg 04/07/21 22:00 04/11/21 10:38 Ascorbic Acid 500 Mg Tab PO Not Given BID BROOKS Aspirin 81 mg 04/09/21 10:00 04/11/21 10:39 Aspirin 81 Mg Tab Chew PO Not Given QDAY [facility] Cholecalciferol 1,000 unit 04/08/21 10:00 04/11/21 10:38 Cholecalciferol (Vit D3) 1000 Unit (25 Mcg) Tab PO Not Given QDAY BROOKS Dextrose 50 ml 04/08/21 08:03 Dextrose 50% In Water (25gm) 50 Ml Syringe IV Q30MIN PRN Hypoglycemia Protocol Enoxaparin Sodium 30 mg 04/09/21 13:00 04/11/21 10:37 Enoxaparin 30 Mg/0.3 Ml Inj SUB-Q 30 mg QDAY BROOKS Administration Protocol Hydromorphone HCl 0.25 mg 04/07/21 18:19 04/08/21 22:43 Hydromorphone 1 Mg/1 Ml Inj IV 0.25 mg Q4H PRN Administration Pain, Moderate (4-6) Hydromorphone HCl 0.5 mg 04/07/21 18:19 Hydromorphone 1 Mg/1 Ml Inj IV Q12H PRN Pain , Severe (7-10) Dextrose 1,000 mls @ 75 mls/hr 04/10/21 19:00 04/11/21 05:29 D5w IV 75 mls/hr DIRECT BROOKS Administration Insulin Glargine 14 units 04/11/21 10:00 04/11/21 10:55 Insulin Glargine 100 Units/Ml SUB-Q 14 units QDAY BROOKS Administration Insulin Human Lispro 0 unit 04/08/21 12:00 04/11/21 05:42 Insulin Lispro 100 Unit/Ml SUB-Q 8 unit Q6HR BROOKS Administration Protocol Methylprednisolone Sodium Succinate 40 mg 04/07/21 20:00 04/11/21 04:51 Methylprednisolone Sod Succinate 40 Mg/1 Ml Inj IV 40 mg Q8H BROOKS Administration Ondansetron HCl 4 mg 04/07/21 18:19 Ondansetron 4 Mg/2 Ml Inj IV Q8H PRN Nausea And Vomiting Oxycodone/Acetaminophen 1 tab 04/07/21 18:19 Oxycodone /Acetaminophen 5-325mg Tab PO Q12H PRN Pain, Moderate (4-6) Sodium Chloride 10 ml 04/07/21 22:00 04/11/21 10:39 Sodium Chloride 0.9% 10 Ml Flush Syringe IV 10 ml BID BROOKS Administration Sodium Chloride 10 ml 04/07/21 18:19 04/10/21 06:17 Sodium Chloride 0.9% 10 Ml Flush Syringe IV 10 ml PRN PRN Administration LINE FLUSH Zinc Sulfate 220 mg 04/07/21 22:00 04/11/21 10:38 Zinc Sulfate 220 Mg Cap PO Not Given BID BROOKS
[2021-04-11 13:51] VITALS: BP 133/80
--- NOTE | 2021-04-11 17:17 | Discharge Summary ---
Providers - Providers Date of Admission: 04/07/21 18:19 Date of discharge: 04/11/21 Attending physician: CHI NOBLE MD 04/08/21 12:52 Consult to Physician [CONS] Routine Comment: Consulting Provider: HELEN CURIEL Physician Instructions: Reason For Exam: COVID-19 infection 04/08/21 12:54 Consult to Physician [CONS] Routine Comment: Consulting Provider: JADE CORRIGAN Physician Instructions: Reason For Exam: Elevated troponin 04/09/21 07:40 Speech Therapy Evaluation and Treat [CONS] Routine Reason For Exam: not eating check swallowing 04/09/21 17:28 Consult to Wound/ET Nurse [CONS] Routine Reason For Exam: wound eval 04/10/21 12:39 Consult to Physician [CONS] Urgent Comment: Consulting Provider: CAROL FLOYD Physician Instructions: Reason For Exam: Hypernatremia Primary care physician: EXPENSE CLERK Hospitalization Reason for admission: Acute hypoxic respiratory failure Condition: Poor Hospital course: 85-year-old female with history of vascular dementia and recent COVID-19 infection who presented from senior care facility with altered mental status and hypoxia. Supplemental O2 was started along with steroids. Insulin started for glycemic control. Amiodarone drip was started for atrial fibrillation with rapid ventricular rate and discontinued once rate was controlled. Patient had severe hypernatremia. IV fluids were given and nephrology was consulted. Speech therapy consulted and recommended NG tube for nutrition. Discussions with the family led to change to DNR/DNI status. Family later decided to take patient home with hospice. Disposition: 50 HOSPICE/HOME Final Discharge Diagnosis (Prints w/discharge instructions): Acute hypoxic respiratory failure. Hypernatremia. Failure to thrive. Type II Diabetes with hyperglycemia. Atrial fibrillation with RVR Core Measure Documentation - Palliative Care Palliative Care/ Comfort Measures: Hospice Care - Core Measures Any of the following diagnoses?: none Exam - Constitutional Vitals: Temp Pulse Resp BP Pulse Ox 97.3 F L 83 20 133/80 96 04/11/21 11:00 04/11/21 11:00 04/11/21 11:00 04/11/21 11:00 04/11/21 11:00 Plan Care Plan Goals: Home with hospice care. Assessment: Patient bedbound with poor p.o. intake. Hypernatremic, hypoxic and prognosis poor. Discharged home with family and hospice. Follow up with: PRIMARY CARE, [Primary Care Provider] - 7 Days
== END 2021-04-11 21:40 | disposition hospice, home (50) | DRG 871 ==
LOC: ED 16:41 → 3A 18:19
PROVIDERS: ADMIT Internal Medicine; ATTEND Student in an Organized Health Care Education/Training Program
DX: A41.9 Sepsis, unspecified organism (principal); J96.01 Acute respiratory failure with hypoxia; I21.A1 Myocardial infarction type 2; U07.1 COVID-19; J12.82 Pneumonia due to coronavirus disease 2019; N17.9 Acute kidney failure, unspecified; E87.0 Hyperosmolality and hypernatremia; F01.50 Vascular dementia, unspecified severity, without behavioral disturbance, psychotic disturbance, mood disturbance, and anxiety; R53.81 Other malaise; Z66 Do not resuscitate; I10 Essential (primary) hypertension; R65.20 Severe sepsis without septic shock; I48.91 Unspecified atrial fibrillation; E86.0 Dehydration; E11.65 Type 2 diabetes mellitus with hyperglycemia; R62.7 Adult failure to thrive
CPT/HCPCS: 36415; 70450; 71045; 80048; 80053; 80061; 80307; 81001; 82140; 82962; 83036; 83880; 84295; 84484; 85025; 85027; 85610; 85730; 86850; 86900; 86901; 87040; 87086; 93005; 94760; G0378; J0282; J0456; J0692; J0696; J1170; J1644; J1650; J1815; J2920; J7030; J7060; J7070; U0003